=== PATIENT | female | born 1960 | race Caucasian/White ===

== ENCOUNTER 2021-06-01 13:18 | Emergency (ER) | payer MEDICAID ==
[~2021-06-01] VITALS: Ht 170.2 cm; Wt 130.0 kg
[~2021-06-01 13:18] MED LIST: ARIP5TAB14 PO; FLUO20CA39 PO; GABA-532 PO; SIMV-42 PO
[2021-06-01 14:01] VITALS: BP 98/69
[2021-06-01 15:25] LABS: BASOPHILS # (AUTO) 0.1 X10'3 (0-0.2); BASOPHILS % (AUTO) 0.8 % (0-1); EOSINOPHILS % (AUTO) 0.1 % (0-6); HEMATOCRIT 50.5 % (35.0-45.0); HEMOGLOBIN 17.2 g/dl (12.0-16.0); MEAN CORPUSCULAR HEMOGLOBIN 31.8 PG (27.0-31.0); MEAN CORPUSCULAR HGB CONC 34.1 g/dL (33.0-36.5); MEAN CORPUSCULAR VOLUME 93.3 FL (78-98); MEAN PLATELET VOLUME 9.5 FL (7.4-10.4); MONOCYTES # (AUTO) 0.8 X10'3 (0-0.9); MONOCYTES % (AUTO) 7.8 % (2-12); NEUTROPHILS # (AUTO) 7.2 X10'3 (1.8-7.7); NEUTROPHILS % (AUTO) 71.3 % (42-75); PLATELET COUNT 168 X10'3 (140-440); RED BLOOD COUNT 5.41 X10'6 (4.20-5.60); RED CELL DISTRIBUTION WIDTH 14.2 % (11.5-14.5)
[2021-06-01 15:36] LABS: ALANINE AMINOTRANSFERASE 36 U/L (12-78); ALBUMIN 3.6 G/DL (3.4-5.0); ALBUMIN/GLOBULIN RATIO 0.9 (1.1-1.5); ALKALINE PHOSPHATASE 84 IU/L (46-116); ANION GAP 11 (8-16); ASPARTATE AMINO TRANSFERASE 23 U/L (10-37); BILIRUBIN,TOTAL 0.8 MG/DL (0.1-1.0); BLOOD UREA NITROGEN 13 MG/DL (7-18); BUN/CREATININE RATIO 12.1 (6.6-38.0); CALCIUM 8.5 MG/DL (8.5-10.1); CHLORIDE 106 MMOL/L (99-107); CREATININE 1.07 MG/DL (0.40-0.90); GLUCOSE 156 MG/DL (70-104); POTASSIUM 3.9 MMOL/L (3.5-5.1); SODIUM 146 MMOL/L (135-145); TOTAL CARBON DIOXIDE 28.9 MMOL/L (24-32); TOTAL PROTEIN 7.7 G/DL (6.4-8.2); eGFR 52 ML/MIN
[2021-06-01 16:01] LABS: CLARITY,URINE TURBID (Clear); GLUCOSE, URINE 100 mg/dl (Neg); KETONES,URINE TRACE mg/dl (Neg); LEUKOCYTE ESTERASE ,URINE NEGATIVE (Neg); OCCULT BLOOD,URINE TRACE-INTACT (Neg); PROTEIN,URINE >=300 mg/dl (Neg)
[2021-06-01 16:13] LABS: UA COLLECTION TYPE CLN CATCH MIDSTREAM
[2021-06-01 16:17] LABS: COLOR,URINE DARK YELLOW (Yellow); NITRITES, URINE NEGATIVE (Neg)
[2021-06-01 16:18] LABS: AMORPHOUS URATES 2+; BACTERIA,URINE 2+ /HPF (Neg); MUCUS STRANDS MANY /LPF (Neg); RBC,URINE 0-2 /HPF (0-2); SQUAMOUS EPITHELIAL CELL,UR MANY /LPF (FEW); WBC,URINE 0-4 /HPF (0-4)
[2021-06-01] MEDS ORDERED: CYCL-1 PO (16:29)
== END 2021-06-01 17:23 | disposition home or self-care (01) ==
LOC: ER 13:18
DX: M54.5 Low back pain (principal); G89.29 Other chronic pain; Z88.6 Allergy status to analgesic agent; Z88.8 Allergy status to other drugs, medicaments and biological substances; Z79.899 Other long term (current) drug therapy
CPT/HCPCS: 36415; 80053; 81001; 85025; 99283

== ENCOUNTER 2022-08-29 13:36 | Emergency (ER) | payer MEDICAID ==
[~2022-08-29] VITALS: Ht 170.2 cm; Wt 158.8 kg
[~2022-08-29 13:36] MED LIST changes: +CYCL-1 PO
[2022-08-29 13:54] VITALS: BP 163/86
[2022-08-29] MEDS ORDERED: acetaminophen 325mg tablet PO ONE (14:35)
[2022-08-29] MEDS ORDERED: ketorolac trometh inj. 60 MG/2 ML VIAL IM ONE (14:35)
[2022-08-29] MEDS ORDERED: HYDR-3965 PO (14:36)
== END 2022-08-29 16:06 | disposition home or self-care (01) ==
LOC: ER 13:37
DX: S40.021A Contusion of right upper arm, initial encounter (principal); M25.521 Pain in right elbow; G89.29 Other chronic pain; M54.50 Low back pain, unspecified; Z88.5 Allergy status to narcotic agent; Z88.8 Allergy status to other drugs, medicaments and biological substances; W19.XXXA Unspecified fall, initial encounter; Y93.89 Activity, other specified; Y92.89 Other specified places as the place of occurrence of the external cause; Y99.8 Other external cause status
CPT/HCPCS: 73030; 73080; 96372; 99284; J1885; A4565

== ENCOUNTER 2022-10-22 10:30 | Inpatient (IN) | payer MEDICAID ==
[~2022-10-22] VITALS: Ht 172.7 cm; Wt 150.0 kg
[2022-10-22] MEDS ORDERED: methylPREDNISolone sod succ 125mg/2ml vial IV ONE (11:10)
[2022-10-22] MEDS ORDERED: albuterol 2.5 MG/3 ML nebule CONTNEB PRN ×2 (11:10→16:00)
[2022-10-22 11:52] LABS: BASOPHILS % (AUTO) 0.3 % (0-1); EOSINOPHILS # (AUTO) 0.1 X10'3 (0-0.9); EOSINOPHILS % (AUTO) 0.6 % (0-6); HEMATOCRIT 35.5 % (35.0-45.0); HEMOGLOBIN 11.2 g/dl (12.0-16.0); LYMPHOCYTES # (AUTO) 1.4 X10'3 (1.1-4.8); LYMPHOCYTES % (AUTO) 12.1 % (21-51); MEAN CORPUSCULAR HEMOGLOBIN 27.1 PG (27.0-31.0); MEAN CORPUSCULAR HGB CONC 31.6 g/dL (33.0-36.5); MEAN CORPUSCULAR VOLUME 85.8 FL (78-98); MEAN PLATELET VOLUME 7.6 FL (7.4-10.4); MONOCYTES % (AUTO) 8.7 % (2-12); NEUTROPHILS # (AUTO) 9.1 X10'3 (1.8-7.7); NEUTROPHILS % (AUTO) 78.3 % (42-75); PLATELET COUNT 257 X10'3 (140-440); RED BLOOD COUNT 4.13 X10'6 (4.20-5.60); RED CELL DISTRIBUTION WIDTH 16.5 % (11.5-14.5); WHITE BLOOD COUNT 11.7 X10'3 (4.5-11.0)
[2022-10-22 11:54] LABS: APTT 25 SECONDS (22-32)
[2022-10-22 11:56] LABS: ABG BASE EXCESS 6.9 mmol/L (-2.0-2.0); ABG OXYGEN SATURATION 85.9 % (94-97); ABG PCO2 (T) 68.4 mmHg (32.0-45.0); ABG PO2 (T) 54.3 mmHg (75.0-100.0); ALLEN'S TEST POSITIVE; FCOHb 3.8 % (0.0-3.9); FMetHb 0.3 % (0.0-1.5); FO2Hb 82.4 % (94-97); RESPIRATORY RATE 10 b/min; TIDAL VOLUME 523 mL; TOTAL HEMOGLOBIN 12.2 G/dl (12.0-16.0)
[2022-10-22 12:02] LABS: ALANINE AMINOTRANSFERASE 36 U/L (12-78); ALBUMIN 3.6 G/DL (3.4-5.0); ALBUMIN/GLOBULIN RATIO 0.9 (1.1-1.5); ALKALINE PHOSPHATASE 100 IU/L (46-116); ANION GAP 5 (8-16); ASPARTATE AMINO TRANSFERASE 16 U/L (10-37); BILIRUBIN,TOTAL 0.8 MG/DL (0.1-1.0); BLOOD UREA NITROGEN 13 MG/DL (7-18); BUN/CREATININE RATIO 14.4 (6.6-38.0); CALCIUM 8.6 MG/DL (8.5-10.1); CHLORIDE 99 MMOL/L (99-107); GLUCOSE 190 MG/DL (70-104); POTASSIUM 4.3 MMOL/L (3.5-5.1); SODIUM 139 MMOL/L (135-145); TOTAL PROTEIN 7.4 G/DL (6.4-8.2); eGFR 63 ML/MIN
[2022-10-22 14:48] LABS: ABG BASE EXCESS 6.8 mmol/L (-2.0-2.0); ABG HCO3 34.2 mmol/L (22.0-26.0); ABG OXYGEN SATURATION 88.9 % (94-97); ABG PCO2 (T) 63.1 mmHg (32.0-45.0); ALLEN'S TEST POSITIVE; FCOHb 3.2 % (0.0-3.9); FMetHb 0.3 % (0.0-1.5); FO2Hb 85.8 % (94-97); RESPIRATORY RATE 10 b/min; TOTAL HEMOGLOBIN 12.4 G/dl (12.0-16.0)
[2022-10-22 16:29] LABS: D-DIMER 0.82 MG/L FEU (0-0.50)
[2022-10-22] MEDS ORDERED: iohexol 350MG/ML 100ml bottle IV ONE ×2 (17:21→17:46)
[2022-10-22] MEDS ORDERED: CefTRIAXone/D5W-Rocephin 1gm 50 ML IV ONE (17:40)
[2022-10-22] MEDS ORDERED: furosemide 10 MG/1 ML 10ml inj IV ONE (19:25)
[2022-10-22] MEDS ORDERED: magnesium Cl slow-release 64mg tablet PO PRN (20:05)
[2022-10-22] MEDS ORDERED: potassium Cl 20 mEq SR tablet PO PRN ×2 (20:05)
[2022-10-22] MEDS ORDERED: magnesium 4gm in 100ml NS 100 ML IV PRN (20:05)
[2022-10-22] MEDS ORDERED: acetaminophen 325mg tablet PO PRN (20:05)
[2022-10-22] MEDS ORDERED: potassium Cl 40MEQ/1/2NS 520ml 520 ML IV PRN (20:05)
[2022-10-22] MEDS ORDERED: magnesium hydroxide 30ml (MOM) UD suspension PO PRN (20:05)
[2022-10-22] MEDS ORDERED: ondansetron/PF 4mg/2ml inj IV PRN (20:05)
[2022-10-22] MEDS ORDERED: PERFLUTREN PROTEIN-A MICROSPHR (Optison) 0.22 MG/ML 3ML VIAL IV ONE (20:05)
[2022-10-22] MEDS ORDERED: glucagon, human recombinant 1mg kit SUBCUT PRN (20:20)
[2022-10-22] MEDS ORDERED: DEXTROSE 15 GM of carb/4 tabs (each vial/BOTTLE has 4 tablets) PO PRN ×2 (20:20)
[2022-10-22] MEDS ORDERED: dextrose 50%-water 50ml dispensing syringe IV PRN ×2 (20:20)
[2022-10-22] MEDS ORDERED: MESSAGE TO PHARMACY PO ONE (20:20)
--- NOTE | 2022-10-22 20:22 | NUR ---
Medication not adminstered in ER or at time listed
[2022-10-22] MEDS ORDERED: diltiazem 60mg tablet PO SCH (21:00)
[2022-10-22] MEDS: diltiazem 30mg tablet PO SCH (22:42)
[2022-10-23] MEDS ORDERED: VIBE75TA PO (04:44)
[2022-10-23] MEDS ORDERED: METF-1203 PO (04:44)
[2022-10-23] MEDS ORDERED: ATOR40TA72 PO (04:44)
[2022-10-23] MEDS ORDERED: ARIP10TA57 PO (04:44)
[2022-10-23] MEDS ORDERED: OXYB15TA19 PO (04:46)
[2022-10-23] MEDS ORDERED: DILT180C87 PO (04:46)
--- NOTE | 2022-10-23 04:47 | NUR ---
Med rec completed using current medications on external med rec.
[2022-10-23 04:57] LABS: BASOPHILS % (AUTO) 0.2 % (0-1); EOSINOPHILS % (AUTO) 0.1 % (0-6); HEMATOCRIT 32.4 % (35.0-45.0); HEMOGLOBIN 10.1 g/dl (12.0-16.0); LYMPHOCYTES # (AUTO) 1.1 X10'3 (1.1-4.8); LYMPHOCYTES % (AUTO) 9.1 % (21-51); MEAN CORPUSCULAR HEMOGLOBIN 26.6 PG (27.0-31.0); MEAN CORPUSCULAR VOLUME 85.6 FL (78-98); MEAN PLATELET VOLUME 7.8 FL (7.4-10.4); MONOCYTES # (AUTO) 0.9 X10'3 (0-0.9); MONOCYTES % (AUTO) 7.6 % (2-12); PLATELET COUNT 230 X10'3 (140-440); RED BLOOD COUNT 3.79 X10'6 (4.20-5.60); RED CELL DISTRIBUTION WIDTH 16.6 % (11.5-14.5)
[2022-10-23 05:20] LABS: ALANINE AMINOTRANSFERASE 29 U/L (12-78); ALBUMIN 2.9 G/DL (3.4-5.0); ALBUMIN/GLOBULIN RATIO 0.9 (1.1-1.5); ALKALINE PHOSPHATASE 85 IU/L (46-116); ANION GAP 3 (8-16); ASPARTATE AMINO TRANSFERASE 14 U/L (10-37); BILIRUBIN,TOTAL 0.6 MG/DL (0.1-1.0); BLOOD UREA NITROGEN 11 MG/DL (7-18); BUN/CREATININE RATIO 13.8 (6.6-38.0); CALCIUM 8.3 MG/DL (8.5-10.1); CHLORIDE 101 MMOL/L (99-107); GLUCOSE 159 MG/DL (70-104); MAGNESIUM 2.2 MG/DL (1.5-2.4); POTASSIUM 4.6 MMOL/L (3.5-5.1); SODIUM 142 MMOL/L (135-145); TOTAL CARBON DIOXIDE 38.1 MMOL/L (24-32); TOTAL PROTEIN 6.3 G/DL (6.4-8.2); eGFR 72 ML/MIN
[2022-10-23] MEDS: K and/or MAG REPLACEMENT MC SCH ×2 (08:00→19:51)
[2022-10-23] MEDS: docusate sod 100mg capsule PO SCH ×2 (08:42→19:52)
[2022-10-23] MEDS: diltiazem 30mg tablet PO SCH ×3 (08:42→19:53)
[2022-10-23] MEDS: ARIPIPRAZOLE 10 MG TABLET PO SCH (08:42)
[2022-10-23] MEDS: apixaban 5mg tablet PO SCH ×2 (08:43→19:52)
[2022-10-23] MEDS: levoFLOXACIN-Levaquin 500mg/D5 100 ML IV SCH (08:45)
[2022-10-23] MEDS: ipratropium/albuterol 3ml nebule NEB SCH ×4 (11:38→23:39)
[2022-10-23] MEDS: methylPREDNISolone sod succ 125mg/2ml vial IV SCH ×2 (14:25→19:51)
[2022-10-23 14:29] VITALS: BP 108/68
[2022-10-23] MEDS ORDERED: APIX5TAB3 PO (15:46)
[2022-10-23 18:00] VITALS: BP 116/59
[2022-10-23] MEDS: oxybutynin 5mg tablet PO SCH (19:53)
[2022-10-23] MEDS ORDERED: insulin glargine (Lantus) pen - multi-dose SQ ONE (20:20)
[2022-10-23 22:00] VITALS: BP 94/56
[2022-10-24] MEDS: methylPREDNISolone sod succ 125mg/2ml vial IV SCH ×4 (01:45→18:58)
[2022-10-24] MEDS: ipratropium/albuterol 3ml nebule NEB SCH ×6 (03:19→23:02)
[2022-10-24 06:00] VITALS: BP 101/62
[2022-10-24] MEDS: levoFLOXACIN-Levaquin 500mg/D5 100 ML IV SCH (07:46)
[2022-10-24] MEDS: FLUoxetine 20mg capsule PO SCH (07:47)
[2022-10-24] MEDS: atorvastatin 20mg tablet PO SCH (07:47)
[2022-10-24] MEDS: oxybutynin 5mg tablet PO SCH ×3 (07:47→21:19)
[2022-10-24] MEDS: docusate sod 100mg capsule PO SCH ×2 (07:47→18:58)
[2022-10-24] MEDS: ARIPIPRAZOLE 10 MG TABLET PO SCH (07:48)
[2022-10-24] MEDS: diltiazem 30mg tablet PO SCH ×3 (07:48→18:58)
[2022-10-24] MEDS: apixaban 5mg tablet PO SCH ×2 (07:48→20:00)
[2022-10-24] MEDS: VIBEGRON 75 MG PO SCH (07:49)
[2022-10-24] MEDS ORDERED: ARIPIPRAZOLE 10 MG TABLET PO SCH (08:00)
[2022-10-24] MEDS: K and/or MAG REPLACEMENT MC SCH ×2 (08:00→20:00)
[2022-10-24 08:26] LABS: BASOPHILS % (AUTO) 0 % (0-1); EOSINOPHILS % (AUTO) 0 % (0-6); HEMATOCRIT 32.4 % (35.0-45.0); HEMOGLOBIN 10.2 g/dl (12.0-16.0); LYMPHOCYTES # (AUTO) 0.6 X10'3 (1.1-4.8); LYMPHOCYTES % (AUTO) 6.1 % (21-51); MEAN CORPUSCULAR HGB CONC 31.6 g/dL (33.0-36.5); MEAN CORPUSCULAR VOLUME 85.7 FL (78-98); MEAN PLATELET VOLUME 7.9 FL (7.4-10.4); MONOCYTES # (AUTO) 0.2 X10'3 (0-0.9); MONOCYTES % (AUTO) 1.6 % (2-12); NEUTROPHILS # (AUTO) 9.3 X10'3 (1.8-7.7); NEUTROPHILS % (AUTO) 92.3 % (42-75); PLATELET COUNT 226 X10'3 (140-440); RED BLOOD COUNT 3.78 X10'6 (4.20-5.60); RED CELL DISTRIBUTION WIDTH 16.3 % (11.5-14.5)
[2022-10-24 08:41] LABS: ALANINE AMINOTRANSFERASE 28 U/L (12-78); ALBUMIN/GLOBULIN RATIO 0.9 (1.1-1.5); ALKALINE PHOSPHATASE 75 IU/L (46-116); ANION GAP 2 (8-16); ASPARTATE AMINO TRANSFERASE 12 U/L (10-37); BILIRUBIN,TOTAL 0.5 MG/DL (0.1-1.0); BLOOD UREA NITROGEN 19 MG/DL (7-18); BUN/CREATININE RATIO 22.1 (6.6-38.0); CALCIUM 8.3 MG/DL (8.5-10.1); CHLORIDE 101 MMOL/L (99-107); CREATININE 0.86 MG/DL (0.40-0.90); GLUCOSE 239 MG/DL (70-104); MAGNESIUM 2.5 MG/DL (1.5-2.4); POTASSIUM 4.9 MMOL/L (3.5-5.1); SODIUM 140 MMOL/L (135-145); TOTAL CARBON DIOXIDE 36.6 MMOL/L (24-32); TOTAL PROTEIN 6.3 G/DL (6.4-8.2); eGFR 66 ML/MIN
[2022-10-24] MEDS: insulin Lispro (HumaLOG) vial - multi-dose SQ SCH ×3 (09:07→19:13)
[2022-10-24] MEDS: furosemide 40mg/4ml inj IV SCH ×2 (10:17→18:58)
[2022-10-24 10:30] VITALS: BP 108/66
[2022-10-24 15:00] VITALS: BP 103/58
[2022-10-24 18:00] VITALS: BP 103/59
[2022-10-24] MEDS: insulin glargine (Lantus) pen - multi-dose SQ SCH (21:34)
[2022-10-24 22:00] VITALS: BP 99/61
[2022-10-25] MEDS: methylPREDNISolone sod succ 125mg/2ml vial IV SCH ×4 (01:41→19:34)
[2022-10-25 02:00] VITALS: BP 119/69
[2022-10-25] MEDS: ipratropium/albuterol 3ml nebule NEB SCH ×5 (03:37→20:18)
[2022-10-25 06:00] VITALS: BP 120/80
[2022-10-25 06:34] LABS: BASOPHILS % (AUTO) 0.1 % (0-1); EOSINOPHILS % (AUTO) 0 % (0-6); HEMATOCRIT 32.5 % (35.0-45.0); HEMOGLOBIN 10.1 g/dl (12.0-16.0); LYMPHOCYTES # (AUTO) 0.7 X10'3 (1.1-4.8); LYMPHOCYTES % (AUTO) 5.7 % (21-51); MEAN CORPUSCULAR HEMOGLOBIN 26.1 PG (27.0-31.0); MEAN CORPUSCULAR VOLUME 84.5 FL (78-98); MEAN PLATELET VOLUME 7.6 FL (7.4-10.4); MONOCYTES # (AUTO) 0.3 X10'3 (0-0.9); MONOCYTES % (AUTO) 2.7 % (2-12); NEUTROPHILS # (AUTO) 10.7 X10'3 (1.8-7.7); NEUTROPHILS % (AUTO) 91.5 % (42-75); PLATELET COUNT 222 X10'3 (140-440); RED BLOOD COUNT 3.85 X10'6 (4.20-5.60); RED CELL DISTRIBUTION WIDTH 16.5 % (11.5-14.5); WHITE BLOOD COUNT 11.7 X10'3 (4.5-11.0)
[2022-10-25 06:52] LABS: ALANINE AMINOTRANSFERASE 28 U/L (12-78); ALBUMIN/GLOBULIN RATIO 0.9 (1.1-1.5); ALKALINE PHOSPHATASE 69 IU/L (46-116); ANION GAP 0 (8-16); ASPARTATE AMINO TRANSFERASE 14 U/L (10-37); BILIRUBIN,TOTAL 0.5 MG/DL (0.1-1.0); BLOOD UREA NITROGEN 28 MG/DL (7-18); BUN/CREATININE RATIO 31.5 (6.6-38.0); CALCIUM 8.7 MG/DL (8.5-10.1); CHLORIDE 100 MMOL/L (99-107); CREATININE 0.89 MG/DL (0.40-0.90); GLUCOSE 227 MG/DL (70-104); MAGNESIUM 2.4 MG/DL (1.5-2.4); POTASSIUM 4.4 MMOL/L (3.5-5.1); SODIUM 139 MMOL/L (135-145); TOTAL CARBON DIOXIDE 39.4 MMOL/L (24-32); TOTAL PROTEIN 6.3 G/DL (6.4-8.2); eGFR 64 ML/MIN
--- NOTE | 2022-10-25 06:53 | NUR ---
Patient in room PCU 3016U. I have received report from Briana HEART and had the opportunity to ask questions and assume patient care. Pt is laying low fowers in bed. Pt on 5L NC. No s/s of distress, no s/s of pain at this time. BLL, call light within reach, frequently used items in reach, frequent rounding, residential care officer socks on. Will continue to monitor.
[2022-10-25] MEDS: K and/or MAG REPLACEMENT MC SCH ×2 (08:00→20:00)
[2022-10-25] MEDS: VIBEGRON 75 MG PO SCH (08:00)
[2022-10-25] MEDS: levoFLOXACIN-Levaquin 500mg/D5 100 ML IV SCH (08:00)
[2022-10-25] MEDS: atorvastatin 20mg tablet PO SCH (09:32)
[2022-10-25] MEDS: ARIPIPRAZOLE 10 MG TABLET PO SCH (09:32)
[2022-10-25] MEDS: furosemide 40mg/4ml inj IV SCH ×2 (09:32→19:34)
[2022-10-25] MEDS: docusate sod 100mg capsule PO SCH ×2 (09:33→19:21)
[2022-10-25] MEDS: FLUoxetine 20mg capsule PO SCH (09:33)
[2022-10-25] MEDS: oxybutynin 5mg tablet PO SCH ×3 (09:33→21:00)
[2022-10-25] MEDS: apixaban 5mg tablet PO SCH ×2 (09:33→19:22)
[2022-10-25] MEDS: diltiazem 30mg tablet PO SCH ×3 (09:33→21:00)
[2022-10-25] MEDS: insulin Lispro (HumaLOG) vial - multi-dose SQ SCH ×4 (09:50→21:09)
[2022-10-25 11:00] VITALS: BP 97/58
--- NOTE | 2022-10-25 11:27 | NUR ---
Brea Chowdary [id number]: x3 PIV tries. Need help placing new PIV- if you have time. Page to PICC nurse
--- NOTE | 2022-10-25 14:27 | NUR ---
Brea Chowdary [id number]: Need help placing new PIV. Multiple attempts no success. Thank you -Neisha Escalante EXT [phone] 2nd page to PICC Nurse
--- NOTE | 2022-10-25 15:46 | NUR ---
Pt seems to be doing good off the bipap, up in recliner. Spoke to her about possibly needing to wear the bipap for tonight, then she may not need tomorrow. Addendum: 10/25/22 at 1546 by Kristie Mathis RT Amended: Links added.
[2022-10-25 18:00] VITALS: BP 93/55
--- NOTE | 2022-10-25 19:10 | NUR ---
Problems reprioritized. Patient report given, questions answered & plan of care reviewed with Ivy HEART.
[2022-10-25] MEDS: insulin glargine (Lantus) pen - multi-dose SQ SCH (21:08)
[2022-10-25 22:00] VITALS: BP 118/73
[2022-10-26] VITALS (7 sets, daily range): BP systolic 97–136; BP diastolic 59–78
[2022-10-26] MEDS: ipratropium/albuterol 3ml nebule NEB SCH ×7 (00:06→23:46)
[2022-10-26] MEDS: methylPREDNISolone sod succ 125mg/2ml vial IV SCH ×4 (02:02→22:01)
--- NOTE | 2022-10-26 06:30 | NUR ---
Patient in room PCU 3018. I have received report from UNA BAJWA, and had the opportunity to ask questions and assume patient care.
--- NOTE | 2022-10-26 06:55 | NUR ---
Problems reprioritized. Patient report given, questions answered & plan of care reviewed with Zoë HEART.
[2022-10-26 07:04] LABS: ALANINE AMINOTRANSFERASE 31 U/L (12-78); ALBUMIN/GLOBULIN RATIO 0.9 (1.1-1.5); ALKALINE PHOSPHATASE 61 IU/L (46-116); ANION GAP 3 (8-16); ASPARTATE AMINO TRANSFERASE 12 U/L (10-37); BILIRUBIN,TOTAL 0.5 MG/DL (0.1-1.0); BLOOD UREA NITROGEN 28 MG/DL (7-18); BUN/CREATININE RATIO 36.8 (6.6-38.0); CALCIUM 8.7 MG/DL (8.5-10.1); CHLORIDE 98 MMOL/L (99-107); CREATININE 0.76 MG/DL (0.40-0.90); GLUCOSE 223 MG/DL (70-104); MAGNESIUM 2.4 MG/DL (1.5-2.4); POTASSIUM 4.5 MMOL/L (3.5-5.1); SODIUM 139 MMOL/L (135-145); TOTAL CARBON DIOXIDE 38.1 MMOL/L (24-32); TOTAL PROTEIN 6.2 G/DL (6.4-8.2); eGFR 77 ML/MIN
[2022-10-26 07:07] LABS: BASOPHILS % (AUTO) 0 % (0-1); EOSINOPHILS % (AUTO) 0 % (0-6); HEMATOCRIT 33.1 % (35.0-45.0); HEMOGLOBIN 10.5 g/dl (12.0-16.0); LYMPHOCYTES # (AUTO) 0.6 X10'3 (1.1-4.8); MEAN CORPUSCULAR HEMOGLOBIN 26.8 PG (27.0-31.0); MEAN CORPUSCULAR HGB CONC 31.6 g/dL (33.0-36.5); MEAN CORPUSCULAR VOLUME 84.7 FL (78-98); MEAN PLATELET VOLUME 7.8 FL (7.4-10.4); MONOCYTES # (AUTO) 0.2 X10'3 (0-0.9); MONOCYTES % (AUTO) 1.7 % (2-12); NEUTROPHILS # (AUTO) 9.3 X10'3 (1.8-7.7); NEUTROPHILS % (AUTO) 92.3 % (42-75); PLATELET COUNT 208 X10'3 (140-440); RED BLOOD COUNT 3.91 X10'6 (4.20-5.60); RED CELL DISTRIBUTION WIDTH 16.8 % (11.5-14.5); WHITE BLOOD COUNT 10.1 X10'3 (4.5-11.0)
[2022-10-26] MEDS: K and/or MAG REPLACEMENT MC SCH ×2 (08:00→20:00)
[2022-10-26] MEDS: insulin Lispro (HumaLOG) vial - multi-dose SQ SCH ×4 (09:16→22:21)
[2022-10-26] MEDS: levoFLOXACIN-Levaquin 500mg/D5 100 ML IV SCH (09:22)
[2022-10-26] MEDS: furosemide 40mg/4ml inj IV SCH ×2 (09:22→22:10)
[2022-10-26] MEDS: oxybutynin 5mg tablet PO SCH ×3 (09:25→22:25)
[2022-10-26] MEDS: atorvastatin 20mg tablet PO SCH (09:25)
[2022-10-26] MEDS: VIBEGRON 75 MG PO SCH (09:25)
[2022-10-26] MEDS: docusate sod 100mg capsule PO SCH ×2 (09:25→20:54)
[2022-10-26] MEDS: diltiazem 30mg tablet PO SCH ×3 (09:26→21:00)
[2022-10-26] MEDS: ARIPIPRAZOLE 10 MG TABLET PO SCH (09:26)
[2022-10-26] MEDS: FLUoxetine 20mg capsule PO SCH (09:26)
[2022-10-26] MEDS: apixaban 5mg tablet PO SCH ×2 (09:37→19:18)
[2022-10-26] MEDS: mag hydrox/Alum hydrox/simeth 30ml oral suspension PO PRN (10:44)
--- NOTE | 2022-10-26 14:54 | NUR ---
Initial: Pt admit for acute respiratory failure with CO2 retention, CHF exacerbation, COPD exacerbation, bilat PNA, and A.fib. Currently on a CHO controlled diet and eating well, documented with 75-100% PO intake. D/w dietary to send additional protein with meals for satiety. LBM 10/22, receiving routine bowel care. D/w dietary to send power pudding with next meal to further assist with bowel regularity. Will continue to follow and monitor need for additional nutrition intervention. Recommendations: 1) Continue CHO controlled diet 2) Double eggs WB, double meat BIDLD for satiety 3) Routine bowel care; monitor need for additional 4) Scaled weight this admit; subsequent weekly scaled weights Addendum: 10/26/22 at [address] Amended: Links added.
--- NOTE | 2022-10-26 18:12 | NUR ---
Problems reprioritized. Patient report given, questions answered & plan of care reviewed with GISSEL GUAJARDO.
--- NOTE | 2022-10-26 18:15 | NUR ---
Patient in room PCU 3018. I have received report from Zoë HEART and had the opportunity to ask questions and assume patient care.
[2022-10-26] MEDS: insulin glargine (Lantus) pen - multi-dose SQ SCH (22:21)
[2022-10-26] MEDS: acetaminophen 325mg tablet PO PRN (22:25)
[2022-10-27 02:00] VITALS: BP 92/64
[2022-10-27] MEDS: ipratropium/albuterol 3ml nebule NEB SCH ×6 (03:01→22:51)
[2022-10-27 06:00] VITALS: BP 110/72
--- NOTE | 2022-10-27 06:19 | NUR ---
Problems reprioritized. Patient report given, questions answered & plan of care reviewed with Zoë HEART.
--- NOTE | 2022-10-27 06:35 | NUR ---
Patient in room PCU 3018. I have received report from GISSEL GUAJARDO, and had the opportunity to ask questions and assume patient care. PT AWAKE, RESTING COMFORTABLY, NO NEEDS AT THIS TIME. WILL CONTINUE TO MONITOR.
--- NOTE | 2022-10-27 06:57 | NUR ---
Agree with Kat CHAUHAN except where I documented my findings.
[2022-10-27 07:05] LABS: BASOPHILS % (AUTO) 0 % (0-1); EOSINOPHILS % (AUTO) 0 % (0-6); HEMATOCRIT 35.9 % (35.0-45.0); HEMOGLOBIN 11.3 g/dl (12.0-16.0); LYMPHOCYTES # (AUTO) 0.8 X10'3 (1.1-4.8); LYMPHOCYTES % (AUTO) 6.6 % (21-51); MEAN CORPUSCULAR HEMOGLOBIN 26.4 PG (27.0-31.0); MEAN CORPUSCULAR HGB CONC 31.5 g/dL (33.0-36.5); MEAN CORPUSCULAR VOLUME 83.7 FL (78-98); MEAN PLATELET VOLUME 7.6 FL (7.4-10.4); MONOCYTES # (AUTO) 0.5 X10'3 (0-0.9); MONOCYTES % (AUTO) 3.9 % (2-12); NEUTROPHILS # (AUTO) 10.4 X10'3 (1.8-7.7); NEUTROPHILS % (AUTO) 89.5 % (42-75); PLATELET COUNT 222 X10'3 (140-440); RED BLOOD COUNT 4.28 X10'6 (4.20-5.60); RED CELL DISTRIBUTION WIDTH 16.5 % (11.5-14.5); WHITE BLOOD COUNT 11.6 X10'3 (4.5-11.0)
[2022-10-27 07:13] LABS: ALANINE AMINOTRANSFERASE 32 U/L (12-78); ALBUMIN 3.1 G/DL (3.4-5.0); ALBUMIN/GLOBULIN RATIO 0.9 (1.1-1.5); ALKALINE PHOSPHATASE 63 IU/L (46-116); ANION GAP 2 (8-16); ASPARTATE AMINO TRANSFERASE 19 U/L (10-37); BILIRUBIN,TOTAL 0.6 MG/DL (0.1-1.0); BLOOD UREA NITROGEN 31 MG/DL (7-18); BUN/CREATININE RATIO 32.6 (6.6-38.0); CALCIUM 8.6 MG/DL (8.5-10.1); CHLORIDE 97 MMOL/L (99-107); CREATININE 0.95 MG/DL (0.40-0.90); GLUCOSE 195 MG/DL (70-104); POTASSIUM 4.1 MMOL/L (3.5-5.1); SODIUM 139 MMOL/L (135-145); TOTAL CARBON DIOXIDE 39.7 MMOL/L (24-32); TOTAL PROTEIN 6.4 G/DL (6.4-8.2); eGFR 59 ML/MIN
[2022-10-27] MEDS: K and/or MAG REPLACEMENT MC SCH ×2 (08:00→20:00)
[2022-10-27] MEDS: insulin Lispro (HumaLOG) vial - multi-dose SQ SCH ×4 (09:03→22:05)
[2022-10-27] MEDS: methylPREDNISolone sod succ 125mg/2ml vial IV SCH (09:07)
[2022-10-27] MEDS: furosemide 40mg/4ml inj IV SCH ×2 (09:08→22:21)
[2022-10-27] MEDS: oxybutynin 5mg tablet PO SCH ×3 (09:12→22:14)
[2022-10-27] MEDS: VIBEGRON 75 MG PO SCH (09:12)
[2022-10-27] MEDS: FLUoxetine 20mg capsule PO SCH (09:12)
[2022-10-27] MEDS: docusate sod 100mg capsule PO SCH ×2 (09:12→22:14)
[2022-10-27] MEDS: diltiazem 30mg tablet PO SCH ×3 (09:13→21:00)
[2022-10-27] MEDS: ARIPIPRAZOLE 10 MG TABLET PO SCH (09:13)
[2022-10-27] MEDS: atorvastatin 20mg tablet PO SCH (09:13)
[2022-10-27] MEDS: apixaban 5mg tablet PO SCH ×2 (09:13→22:14)
--- NOTE | 2022-10-27 10:46 | NUR ---
Paged PICC nurse [id number]. Belt. Need PIV assistance for abx and lasix. 2 failed attempts. Thx
[2022-10-27 12:17] VITALS: BP 125/54
[2022-10-27] MEDS: levoFLOXACIN-Levaquin 500mg/D5 100 ML IV SCH (12:21)
[2022-10-27 16:32] VITALS: BP 131/70
[2022-10-27 18:00] VITALS: BP 121/65
--- NOTE | 2022-10-27 18:16 | NUR ---
Problems reprioritized. Patient report given, questions answered & plan of care reviewed with GISSEL GUAJARDO.
--- NOTE | 2022-10-27 18:24 | NUR ---
Patient in room PCU 3018. I have received report from Martha HEART and had the opportunity to ask questions and assume patient care.
[2022-10-27] MEDS: insulin glargine (Lantus) pen - multi-dose SQ SCH (22:03)
[2022-10-27] MEDS: methylPREDNISolone sod succ/PF 40mg inj. IV SCH (22:21)
[2022-10-28] MEDS: ipratropium/albuterol 3ml nebule NEB SCH ×6 (02:07→23:21)
[2022-10-28 06:00] VITALS: BP 120/87
--- NOTE | 2022-10-28 06:25 | NUR ---
Problems reprioritized. Patient report given, questions answered & plan of care reviewed with Zoë HEART.
--- NOTE | 2022-10-28 06:39 | NUR ---
Patient in room PCU 3018. I have received report from GISSEL GUAJARDO, and had the opportunity to ask questions and assume patient care.
--- NOTE | 2022-10-28 07:02 | NUR ---
Agree with Suma SALES AGENT PROTECTIVE SERVICE assessment except where I documented my findings.
[2022-10-28] MEDS: K and/or MAG REPLACEMENT MC SCH ×2 (08:00→20:00)
[2022-10-28] MEDS: insulin Lispro (HumaLOG) vial - multi-dose SQ SCH ×3 (08:55→19:00)
[2022-10-28] MEDS: methylPREDNISolone sod succ/PF 40mg inj. IV SCH ×2 (08:55→20:10)
[2022-10-28] MEDS: furosemide 40mg/4ml inj IV SCH ×2 (08:56→20:00)
[2022-10-28] MEDS: docusate sod 100mg capsule PO SCH ×2 (09:03→20:54)
[2022-10-28] MEDS: ARIPIPRAZOLE 10 MG TABLET PO SCH (09:03)
[2022-10-28] MEDS: oxybutynin 5mg tablet PO SCH ×3 (09:03→20:54)
[2022-10-28] MEDS: atorvastatin 20mg tablet PO SCH (09:03)
[2022-10-28] MEDS: VIBEGRON 75 MG PO SCH (09:04)
[2022-10-28] MEDS: diltiazem 30mg tablet PO SCH (09:04)
[2022-10-28] MEDS: FLUoxetine 20mg capsule PO SCH (09:04)
[2022-10-28] MEDS: apixaban 5mg tablet PO SCH ×2 (09:04→20:54)
[2022-10-28] MEDS ORDERED: diltiazem SR 60mg capsule (twice daily) PO ONE (09:55)
[2022-10-28 11:05] LABS: BASOPHILS % (AUTO) 0.2 % (0-1); EOSINOPHILS % (AUTO) 0 % (0-6); HEMATOCRIT 37.8 % (35.0-45.0); HEMOGLOBIN 11.8 g/dl (12.0-16.0); LYMPHOCYTES # (AUTO) 0.6 X10'3 (1.1-4.8); LYMPHOCYTES % (AUTO) 4.7 % (21-51); MEAN CORPUSCULAR HEMOGLOBIN 26.1 PG (27.0-31.0); MEAN CORPUSCULAR HGB CONC 31.3 g/dL (33.0-36.5); MEAN CORPUSCULAR VOLUME 83.3 FL (78-98); MEAN PLATELET VOLUME 7.9 FL (7.4-10.4); MONOCYTES # (AUTO) 0.6 X10'3 (0-0.9); MONOCYTES % (AUTO) 4.6 % (2-12); NEUTROPHILS # (AUTO) 12.2 X10'3 (1.8-7.7); NEUTROPHILS % (AUTO) 90.5 % (42-75); PLATELET COUNT 239 X10'3 (140-440); RED BLOOD COUNT 4.53 X10'6 (4.20-5.60); RED CELL DISTRIBUTION WIDTH 16.4 % (11.5-14.5); WHITE BLOOD COUNT 13.5 X10'3 (4.5-11.0)
[2022-10-28 11:14] LABS: ALBUMIN 3.2 G/DL (3.4-5.0); ANION GAP 3 (8-16); BLOOD UREA NITROGEN 34 MG/DL (7-18); BUN/CREATININE RATIO 35.1 (6.6-38.0); CALCIUM 8.9 MG/DL (8.5-10.1); CHLORIDE 96 MMOL/L (99-107); CREATININE 0.97 MG/DL (0.40-0.90); GLUCOSE 194 MG/DL (70-104); POTASSIUM 3.8 MMOL/L (3.5-5.1); SODIUM 140 MMOL/L (135-145); eGFR 58 ML/MIN
[2022-10-28 11:15] LABS: TOTAL CARBON DIOXIDE 41.1 MMOL/L (24-32)
--- NOTE | 2022-10-28 11:18 | NUR ---
PAGE SENT PAGER ID: [phone] MESSAGE: [id number] Maik, CONCETTA LEMUS, CRITICAL LAB CO2 41.1. THANK YOU, ODETTE [id number]
[2022-10-28] MEDS: levoFLOXACIN 500mg tablet PO SCH (13:28)
[2022-10-28 14:34] VITALS: BP 91/65
[2022-10-28 18:00] VITALS: BP 118/62
--- NOTE | 2022-10-28 18:03 | NUR ---
Problems reprioritized. Patient report given, questions answered & plan of care reviewed with GISSEL GUAJARDO.
--- NOTE | 2022-10-28 18:32 | NUR ---
Patient in room PCU 3018. I have received report from Zoë HEART and had the opportunity to ask questions and assume patient care.
[2022-10-28] MEDS: insulin glargine (Lantus) pen - multi-dose SQ SCH (21:11)
[2022-10-29] MEDS: ipratropium/albuterol 3ml nebule NEB SCH ×6 (04:11→23:24)
[2022-10-29 06:00] VITALS: BP 108/82
--- NOTE | 2022-10-29 06:21 | NUR ---
Problems reprioritized. Patient report given, questions answered & plan of care reviewed with Angeles CHAUHAN.
[2022-10-29 06:44] LABS: BASOPHILS % (AUTO) 0.3 % (0-1); EOSINOPHILS % (AUTO) 0 % (0-6); HEMATOCRIT 37.7 % (35.0-45.0); HEMOGLOBIN 11.9 g/dl (12.0-16.0); MEAN CORPUSCULAR HEMOGLOBIN 26.2 PG (27.0-31.0); MEAN CORPUSCULAR HGB CONC 31.6 g/dL (33.0-36.5); MEAN CORPUSCULAR VOLUME 83.1 FL (78-98); MONOCYTES # (AUTO) 0.6 X10'3 (0-0.9); MONOCYTES % (AUTO) 4.4 % (2-12); NEUTROPHILS # (AUTO) 11.1 X10'3 (1.8-7.7); NEUTROPHILS % (AUTO) 87.3 % (42-75); PLATELET COUNT 221 X10'3 (140-440); RED BLOOD COUNT 4.54 X10'6 (4.20-5.60); RED CELL DISTRIBUTION WIDTH 16.4 % (11.5-14.5); WHITE BLOOD COUNT 12.8 X10'3 (4.5-11.0)
[2022-10-29 07:09] LABS: ALBUMIN 3.1 G/DL (3.4-5.0); ANION GAP 3 (8-16); BLOOD UREA NITROGEN 31 MG/DL (7-18); BUN/CREATININE RATIO 39.2 (6.6-38.0); CALCIUM 8.6 MG/DL (8.5-10.1); CHLORIDE 99 MMOL/L (99-107); CREATININE 0.79 MG/DL (0.40-0.90); GLUCOSE 148 MG/DL (70-104); POTASSIUM 4.4 MMOL/L (3.5-5.1); SODIUM 140 MMOL/L (135-145); TOTAL CARBON DIOXIDE 37.7 MMOL/L (24-32); eGFR 73 ML/MIN
[2022-10-29] MEDS: furosemide 40mg/4ml inj IV SCH ×2 (07:55→20:03)
[2022-10-29] MEDS: methylPREDNISolone sod succ/PF 40mg inj. IV SCH ×2 (07:55→20:05)
[2022-10-29] MEDS: docusate sod 100mg capsule PO SCH ×2 (07:56→20:13)
[2022-10-29] MEDS: atorvastatin 20mg tablet PO SCH (07:56)
[2022-10-29] MEDS: ARIPIPRAZOLE 10 MG TABLET PO SCH (07:57)
[2022-10-29] MEDS: VIBEGRON 75 MG PO SCH (07:57)
[2022-10-29] MEDS: oxybutynin 5mg tablet PO SCH ×3 (07:57→20:17)
[2022-10-29] MEDS: FLUoxetine 20mg capsule PO SCH (07:57)
[2022-10-29] MEDS: diltiazem SR 60mg capsule (twice daily) PO SCH (07:57)
[2022-10-29] MEDS: apixaban 5mg tablet PO SCH ×2 (07:57→20:14)
[2022-10-29] MEDS: K and/or MAG REPLACEMENT MC SCH ×2 (08:00→20:00)
[2022-10-29] MEDS: insulin Lispro (HumaLOG) vial - multi-dose SQ SCH ×3 (09:19→19:52)
[2022-10-29] MEDS: levoFLOXACIN 500mg tablet PO SCH (12:07)
[2022-10-29 18:00] VITALS: BP 114/63
--- NOTE | 2022-10-29 18:00 | NUR ---
Patient in room PCU 3018. I have received report from GLENN CHAUHAN and had the opportunity to ask questions and assume patient care.
[2022-10-29] MEDS: acetaminophen 325mg tablet PO PRN (20:14)
[2022-10-29 22:00] VITALS: BP 114/68
[2022-10-29] MEDS: insulin glargine (Lantus) pen - multi-dose SQ SCH (22:54)
[2022-10-30 02:00] VITALS: BP 122/75
[2022-10-30] MEDS: acetaminophen 325mg tablet PO PRN (02:59)
[2022-10-30] MEDS: ipratropium/albuterol 3ml nebule NEB SCH ×6 (03:11→23:00)
[2022-10-30 06:00] VITALS: BP 115/76
[2022-10-30] MEDS: K and/or MAG REPLACEMENT MC SCH ×2 (08:00→20:00)
[2022-10-30] MEDS: methylPREDNISolone sod succ/PF 40mg inj. IV SCH ×2 (08:12→20:00)
[2022-10-30] MEDS: furosemide 40mg/4ml inj IV SCH ×2 (08:12→20:00)
[2022-10-30] MEDS: apixaban 5mg tablet PO SCH ×2 (09:26→20:37)
[2022-10-30] MEDS: docusate sod 100mg capsule PO SCH ×2 (09:26→20:00)
[2022-10-30] MEDS: ARIPIPRAZOLE 10 MG TABLET PO SCH (09:26)
[2022-10-30] MEDS: FLUoxetine 20mg capsule PO SCH (09:26)
[2022-10-30] MEDS: atorvastatin 20mg tablet PO SCH (09:26)
[2022-10-30] MEDS: oxybutynin 5mg tablet PO SCH ×3 (09:26→20:37)
[2022-10-30] MEDS: diltiazem SR 60mg capsule (twice daily) PO SCH (09:27)
[2022-10-30] MEDS: VIBEGRON 75 MG PO SCH (09:27)
[2022-10-30] MEDS: insulin Lispro (HumaLOG) vial - multi-dose SQ SCH ×2 (09:35→13:01)
[2022-10-30] MEDS: levoFLOXACIN 500mg tablet PO SCH (10:56)
[2022-10-30] MEDS: mag hydrox/Alum hydrox/simeth 30ml oral suspension PO PRN (10:56)
[2022-10-30 11:00] VITALS: BP 120/78
[2022-10-30] MEDS ORDERED: LEVO-65 PO (11:29)
[2022-10-30] MEDS ORDERED: IPRA3AMP9 NEB (11:29)
[2022-10-30] MEDS ORDERED: PRED10TA23 PO (11:30)
[2022-10-30] MEDS ORDERED: PANT40SU2 PO (11:30)
--- NOTE | 2022-10-30 11:34 | NUR ---
O2 Sat at rest on room air:_88__% If below 89%: Recovery O2 Sat at rest on _2__LPM:__94_%:___% via nasal cannula (mask/nasal cannula, etc..) No further documentation is necessary. If O2 Sat did not drop below 89% on room air,ambulate patient on room air. O2 Sat while ambulating on room air:___% Recovery O2 Sat while ambulating on ___LPM:___% No further documentation is necessary. If patient does not drop below 89% while ambulating, he/she does not qualify for home O2.
[2022-10-30 15:00] VITALS: BP 124/74
--- NOTE | 2022-10-30 16:50 | NUR ---
GISSEL II documentation: I have reviewed and agree with all interventions, assessments performed and documented by GISSEL Reynoso II.
[2022-10-30 18:00] VITALS: BP 104/74
--- NOTE | 2022-10-30 18:01 | NUR ---
1700 blood glucose pt refused.
[2022-10-30] MEDS: insulin glargine (Lantus) pen - multi-dose SQ SCH (20:45)
[2022-10-30 22:00] VITALS: BP 95/56
[2022-10-31 02:00] VITALS: BP 117/74
[2022-10-31] MEDS: ipratropium/albuterol 3ml nebule NEB SCH ×3 (03:00→10:48)
[2022-10-31] MEDS: furosemide 40mg/4ml inj IV SCH (08:00)
[2022-10-31] MEDS: methylPREDNISolone sod succ/PF 40mg inj. IV SCH (08:00)
[2022-10-31] MEDS: K and/or MAG REPLACEMENT MC SCH (08:00)
[2022-10-31] MEDS: docusate sod 100mg capsule PO SCH (08:41)
[2022-10-31] MEDS: ARIPIPRAZOLE 10 MG TABLET PO SCH (08:41)
[2022-10-31] MEDS: atorvastatin 20mg tablet PO SCH (08:41)
[2022-10-31] MEDS: FLUoxetine 20mg capsule PO SCH (08:41)
[2022-10-31] MEDS: apixaban 5mg tablet PO SCH (08:41)
[2022-10-31] MEDS: oxybutynin 5mg tablet PO SCH ×2 (08:41→13:26)
[2022-10-31] MEDS: diltiazem SR 60mg capsule (twice daily) PO SCH (08:41)
[2022-10-31] MEDS: VIBEGRON 75 MG PO SCH (08:43)
[2022-10-31] MEDS: insulin Lispro (HumaLOG) vial - multi-dose SQ SCH ×2 (08:48→13:31)
[2022-10-31] MEDS: levoFLOXACIN 500mg tablet PO SCH (11:43)
--- NOTE | 2022-10-31 14:36 | NUR ---
AGREE WITH GLENN CHAUHAN AM ASSESSMENT
== END 2022-10-31 14:00 | disposition home health service (06) | DRG 139 ==
LOC: ER 10:31 → ED HOLD 20:07 → PCU 3S 10-23 14:15
PROVIDERS: ADMIT Internal Medicine; ATTEND Family Medicine
PROC: B32T1ZZ Computerized Tomography (CT Scan) of Left Pulmonary Artery using Low Osmolar Contrast (ICD-10-PCS; 2022-10-22)
PROC: B3201ZZ Computerized Tomography (CT Scan) of Thoracic Aorta using Low Osmolar Contrast (ICD-10-PCS; 2022-10-22)
PROC: B32S1ZZ Computerized Tomography (CT Scan) of Right Pulmonary Artery using Low Osmolar Contrast (ICD-10-PCS; 2022-10-22)
PROC: 5A09357 Assistance with Respiratory Ventilation, Less than 24 Consecutive Hours, Continuous Positive Airway Pressure (ICD-10-PCS; principal; 2022-10-23)
PROC: 5A09357 Assistance with Respiratory Ventilation, Less than 24 Consecutive Hours, Continuous Positive Airway Pressure (ICD-10-PCS; 2022-10-24)
PROC: 5A09357 Assistance with Respiratory Ventilation, Less than 24 Consecutive Hours, Continuous Positive Airway Pressure (ICD-10-PCS; 2022-10-25)
PROC: 5A09357 Assistance with Respiratory Ventilation, Less than 24 Consecutive Hours, Continuous Positive Airway Pressure (ICD-10-PCS; 2022-10-26)
PROC: 5A09357 Assistance with Respiratory Ventilation, Less than 24 Consecutive Hours, Continuous Positive Airway Pressure (ICD-10-PCS; 2022-10-27)
PROC: 5A09357 Assistance with Respiratory Ventilation, Less than 24 Consecutive Hours, Continuous Positive Airway Pressure (ICD-10-PCS; 2022-10-28)
PROC: 5A09357 Assistance with Respiratory Ventilation, Less than 24 Consecutive Hours, Continuous Positive Airway Pressure (ICD-10-PCS; 2022-10-30)
DX: J18.9 Pneumonia, unspecified organism (principal); J96.21 Acute and chronic respiratory failure with hypoxia; I50.33 Acute on chronic diastolic (congestive) heart failure; E11.9 Type 2 diabetes mellitus without complications; I11.0 Hypertensive heart disease with heart failure; J44.0 Chronic obstructive pulmonary disease with (acute) lower respiratory infection; F32.A Depression, unspecified; F41.9 Anxiety disorder, unspecified; E87.29 Other acidosis; G89.29 Other chronic pain; K21.9 Gastro-esophageal reflux disease without esophagitis; M54.9 Dorsalgia, unspecified; I48.91 Unspecified atrial fibrillation; E66.01 Morbid (severe) obesity due to excess calories; E78.00 Pure hypercholesterolemia, unspecified; J44.1 Chronic obstructive pulmonary disease with (acute) exacerbation; J96.22 Acute and chronic respiratory failure with hypercapnia; Z20.822 Contact with and (suspected) exposure to COVID-19; Z79.01 Long term (current) use of anticoagulants; Z79.84 Long term (current) use of oral hypoglycemic drugs; Z87.891 Personal history of nicotine dependence; Z68.43 Body mass index [BMI] 50.0-59.9, adult; Z88.8 Allergy status to other drugs, medicaments and biological substances; Z28.310 Unvaccinated for COVID-19; Z79.899 Other long term (current) drug therapy
CPT/HCPCS: 36415; 36600; 70450; 71045; 71275; 80048; 80053; 82803; 82948; 83735; 83880; 84484; 85018; 85025; 85379; 85610; 85730; 87502; 87503; 87635; 93005; 93306; 94640; 94660; 94760; 97110; 97116; 97161; 97530; 99285; A4349; A4615; A6258; G0378; J0696; J1815; J1940; J1956; J2920; J2930; J3490; Q9967

== ENCOUNTER 2022-12-20 11:00 | Inpatient (IN) | payer MEDICAID ==
[~2022-12-20] VITALS: Ht 170.2 cm; Wt 154.7 kg
[~2022-12-20 11:00] MED LIST changes: +APIX5TAB3 PO; +ARIP10TA57 PO; -ARIP5TAB14 PO; +ATOR40TA72 PO; -CYCL-1 PO; +DILT180C87 PO; -GABA-532 PO; +IPRA3AMP9 NEB; +LEVO-65 PO; +METF-1203 PO; +OXYB15TA19 PO; +PANT40SU2 PO; -SIMV-42 PO; +VIBE75TA PO
[2022-12-20] MEDS ORDERED: acetaminophen 325mg tablet PO STA (11:17)
[2022-12-20] MEDS ORDERED: ipratropium/albuterol 3ml nebule NEB ONE (11:20)
[2022-12-20] MEDS ORDERED: CefTRIAXone 2gm/D5W 50ml BAG 50 ML IV ONE (11:30)
[2022-12-20] MEDS ORDERED: normal saline 1000ML IV soln IV ONE (11:30)
[2022-12-20] MEDS ORDERED: diltiazem 5mg/ml 5ml inj. IV ONE (11:40)
[2022-12-20 11:45] LABS: BASOPHILS # (AUTO) 0.1 X10'3 (0-0.2); BASOPHILS % (AUTO) 0.5 % (0-1); EOSINOPHILS # (AUTO) 0.1 X10'3 (0-0.9); EOSINOPHILS % (AUTO) 0.5 % (0-6); HEMATOCRIT 34.5 % (35.0-45.0); HEMOGLOBIN 10.4 g/dl (12.0-16.0); LYMPHOCYTES # (AUTO) 1.8 X10'3 (1.1-4.8); LYMPHOCYTES % (AUTO) 16.5 % (21-51); MEAN CORPUSCULAR HEMOGLOBIN 24.4 PG (27.0-31.0); MEAN CORPUSCULAR HGB CONC 30.1 g/dL (33.0-36.5); MEAN CORPUSCULAR VOLUME 81.3 FL (78-98); MEAN PLATELET VOLUME 7.5 FL (7.4-10.4); MONOCYTES # (AUTO) 0.8 X10'3 (0-0.9); MONOCYTES % (AUTO) 6.9 % (2-12); NEUTROPHILS # (AUTO) 8.3 X10'3 (1.8-7.7); NEUTROPHILS % (AUTO) 75.6 % (42-75); PLATELET COUNT 244 X10'3 (140-440); RED BLOOD COUNT 4.24 X10'6 (4.20-5.60); RED CELL DISTRIBUTION WIDTH 19.7 % (11.5-14.5)
[2022-12-20 12:14] LABS: ALANINE AMINOTRANSFERASE 15 U/L (12-78); ALBUMIN 3.5 G/DL (3.4-5.0); ALBUMIN/GLOBULIN RATIO 1.1 (1.1-1.5); ALKALINE PHOSPHATASE 77 IU/L (46-116); ANION GAP 4 (8-16); ASPARTATE AMINO TRANSFERASE 11 U/L (10-37); BLOOD UREA NITROGEN 15 MG/DL (7-18); BUN/CREATININE RATIO 24.6 (6.6-38.0); CALCIUM 8.9 MG/DL (8.5-10.1); CHLORIDE 103 MMOL/L (99-107); CREATININE 0.61 MG/DL (0.40-0.90); GLUCOSE 236 MG/DL (70-104); POTASSIUM 4.3 MMOL/L (3.5-5.1); SODIUM 143 MMOL/L (135-145); TOTAL CARBON DIOXIDE 36.4 MMOL/L (24-32); TOTAL PROTEIN 6.8 G/DL (6.4-8.2); eGFR > 90 ML/MIN
[2022-12-20] MEDS ORDERED: diltiazem-D5W 125mg/125ml 125 ML IV SCH (12:15)
[2022-12-20 12:16] LABS: BILIRUBIN,TOTAL 0.6 MG/DL (0.1-1.0)
[2022-12-20] MEDS: diltiazem-NS 100mg/100ml 100 ML IV SCH (12:34)
[2022-12-20 12:58] LABS: ABG BASE EXCESS 7.1 mmol/L (-2.0-2.0); ABG HCO3 35.9 mmol/L (22.0-26.0); ABG OXYGEN SATURATION 91.8 % (94-97); ABG PCO2 (T) 76.3 mmHg (32.0-45.0); ABG PO2 (T) 68.7 mmHg (75.0-100.0); ALLEN'S TEST POSITIVE; FCOHb 1.5 % (0.0-3.9); FLOW 8 L/min; FMetHb 0.2 % (0.0-1.5); FO2Hb 90.2 % (94-97); TOTAL HEMOGLOBIN 11.3 G/dl (12.0-16.0)
[2022-12-20] MEDS ORDERED: IPRA3AMP31 NEB (13:10)
[2022-12-20 13:18] LABS: ANISOCYTOSIS 2+; PLATELET ESTIMATE NORMAL
[2022-12-20 13:20] LABS: HYPOCHROMASIA 1+
[2022-12-20 13:21] LABS: ELLIPTOCYTES 1+
[2022-12-20 13:22] LABS: SCHISTOCYTES FEW; STOMATOCYTES 1+
[2022-12-20] MEDS ORDERED: CefTRIAXone/D5W-Rocephin 1gm 50 ML IV SCH (13:25)
[2022-12-20] MEDS ORDERED: PERFLUTREN PROTEIN-A MICROSPHR (Optison) 0.22 MG/ML 3ML VIAL IV ONE (13:25)
[2022-12-20] MEDS ORDERED: mag hydrox/Alum hydrox/simeth 30ml oral suspension PO PRN (13:25)
[2022-12-20] MEDS ORDERED: magnesium hydroxide 30ml (MOM) UD suspension PO PRN (13:25)
[2022-12-20 13:30] LABS: CLARITY,URINE CLOUDY (Clear); COLOR,URINE YELLOW (Yellow); GLUCOSE, URINE NEGATIVE (Neg); KETONES,URINE TRACE mg/dl (Neg); LEUKOCYTE ESTERASE ,URINE NEGATIVE (Neg); NITRITES, URINE NEGATIVE (Neg); OCCULT BLOOD,URINE NEGATIVE (Neg); PROTEIN,URINE TRACE mg/dl (Neg)
[2022-12-20 13:37] LABS: UA COLLECTION TYPE STRAIGHT CATH
[2022-12-20 13:38] LABS: MUCUS STRANDS MODERATE /LPF (Neg); SQUAMOUS EPITHELIAL CELL,UR MODERATE /LPF (FEW); TRANSITIONAL EPI CELLS,URINE MODERATE /HPF
[2022-12-20 13:39] LABS: BACTERIA,URINE FEW /HPF (Neg); CAL OXALATE CRYSTALS 1+ /HPF (NEGATIVE); HYALINE CASTS 0-3 /LPF (NEGATIVE)
[2022-12-20 13:40] LABS: RBC,URINE 0-2 /HPF (0-2); WBC,URINE 0-4 /HPF (0-4)
[2022-12-20] MEDS ORDERED: furosemide 10 MG/1 ML 10ml inj IV ONE (14:35)
[2022-12-20] MEDS ORDERED: ipratropium/albuterol 3ml nebule NEB PRN (14:45)
[2022-12-20] MEDS ORDERED: ipratropium/albuterol 3ml nebule NEB SCH (15:00)
[2022-12-20] MEDS: ipratropium/albuterol 3ml nebule NEB SCH ×2 (15:14→21:09)
[2022-12-20 15:34] LABS: ABG BASE EXCESS 7.2 mmol/L (-2.0-2.0); ABG HCO3 35.7 mmol/L (22.0-26.0); ABG PCO2 (T) 73.3 mmHg (32.0-45.0); ABG PO2 (T) 81.2 mmHg (75.0-100.0); ALLEN'S TEST POSITIVE; FCOHb 1.5 % (0.0-3.9); FMetHb 0.3 % (0.0-1.5); FO2Hb 93.3 % (94-97); TOTAL HEMOGLOBIN 11.3 G/dl (12.0-16.0)
[2022-12-20] MEDS: methylPREDNISolone sod succ 125mg/2ml vial IV SCH ×2 (16:18→23:28)
--- NOTE | 2022-12-20 17:49 | NUR ---
RN ATTEMPTED TO CALL REPORT TO PCU AND ADELA HEART STATED THAT NURSING INDUSTRIAL STAFF NURSE WANTS PT TRANFERRED AT 1830 D/T [facility].
[2022-12-20] MEDS: docusate sod 100mg capsule PO SCH (20:00)
[2022-12-20] MEDS: furosemide 10 MG/1 ML 10ml inj IV SCH (20:00)
[2022-12-20 22:15] VITALS: BP 99/77
--- NOTE | 2022-12-20 22:27 | NUR ---
CALLED MD WEBSTER FOR BODY LICE TREATMENT.
[2022-12-20] MEDS ORDERED: Permethrin 1% 59ml topical rinse TP ONE (22:30)
[2022-12-20] MEDS ORDERED: Permethrin Cream 60gm TP ONE (22:30)
[2022-12-20] MEDS: apixaban 5mg tablet PO SCH (23:28)
[2022-12-20] MEDS: acetaminophen 325mg tablet PO PRN (23:42)
[2022-12-21] VITALS (11 sets, daily range): BP systolic 107–136; BP diastolic 55–84
--- NOTE | 2022-12-21 | NUR ---
Pt. is awake alert oriented on 02 3L NC. Lungs sound diminished. Pt. is on Cardizem gtt 5 mg/hr for afib hr 130. Pt. has a Curry with usman clear urine large amt. Pt. c/o swollen legs and back pain medicated as needed, tolerated well effective relief. HR remained in 130 with Bp 132/86. 2200 Notified Cardizem rate changed to 7.5 mg/hr. 2300 Pt. expressed desire to go on BIPAP slept most of the night.0200 HR now 97 afib with bp 95/59 no further c/o pain.
--- NOTE | 2022-12-21 00:40 | NUR ---
TREATMENT FOR BODY LICE AND HAIR COMPLETED. PATIENT HAS EXTENSIVE LICE INFESTATION. NO OPEN SKIN, POSSIBLE FUNGAL TREATMENT NEEDED FOR FEET, NYSTatin for breasts and pannus needed.
--- NOTE | 2022-12-21 01:05 | NUR ---
Patient will need shower at 0830 to remove permetherin application and hair treatment. will inform day shift RN
[2022-12-21] MEDS: nystatin 15 GM powder TP SCH ×4 (01:07→21:00)
[2022-12-21] MEDS: furosemide 10 MG/1 ML 10ml inj IV SCH ×3 (01:07→20:18)
--- NOTE | 2022-12-21 01:07 | NUR ---
Nystatin ordered by UNA Oliver-on hold until shower/bath for permetherin completed at 0830-will apply after scabies treatment completed by day shift. Joss Oliver RN
[2022-12-21] MEDS: ipratropium/albuterol 3ml nebule NEB SCH ×4 (01:23→20:04)
--- NOTE | 2022-12-21 01:41 | NUR ---
patient now on bipap, fio2 at 35%
--- NOTE | 2022-12-21 06:38 | NUR ---
Problems reprioritized. Patient report given, questions answered & plan of care reviewed with Chidi HEART.
[2022-12-21 07:07] LABS: BASOPHILS % (AUTO) 0.3 % (0-1); EOSINOPHILS % (AUTO) 0 % (0-6); HEMATOCRIT 32.3 % (35.0-45.0); HEMOGLOBIN 10.1 g/dl (12.0-16.0); LYMPHOCYTES # (AUTO) 0.9 X10'3 (1.1-4.8); MEAN CORPUSCULAR HEMOGLOBIN 24.6 PG (27.0-31.0); MEAN CORPUSCULAR HGB CONC 31.1 g/dL (33.0-36.5); MEAN PLATELET VOLUME 7.7 FL (7.4-10.4); MONOCYTES # (AUTO) 0.2 X10'3 (0-0.9); MONOCYTES % (AUTO) 2.1 % (2-12); NEUTROPHILS # (AUTO) 8.9 X10'3 (1.8-7.7); NEUTROPHILS % (AUTO) 88.6 % (42-75); PLATELET COUNT 236 X10'3 (140-440); RED BLOOD COUNT 4.09 X10'6 (4.20-5.60); RED CELL DISTRIBUTION WIDTH 19.6 % (11.5-14.5); WHITE BLOOD COUNT 10.1 X10'3 (4.5-11.0)
[2022-12-21 07:14] LABS: ALBUMIN 3.3 G/DL (3.4-5.0); ANION GAP 2 (8-16); BLOOD UREA NITROGEN 16 MG/DL (7-18); BUN/CREATININE RATIO 28.1 (6.6-38.0); CALCIUM 8.8 MG/DL (8.5-10.1); CHLORIDE 101 MMOL/L (99-107); CREATININE 0.57 MG/DL (0.40-0.90); GLUCOSE 193 MG/DL (70-104); SODIUM 143 MMOL/L (135-145); TOTAL CARBON DIOXIDE 39.6 MMOL/L (24-32); eGFR > 90 ML/MIN
[2022-12-21 07:46] LABS: HEMOGLOBIN A1C 7.2 % (4.5-6.2)
[2022-12-21] MEDS: docusate sod 100mg capsule PO SCH ×2 (08:00→20:18)
[2022-12-21] MEDS ORDERED: VIBEGRON PO SCH (08:00)
[2022-12-21] MEDS: CefTRIAXone/D5W-Rocephin 1gm 50 ML IV SCH (08:31)
[2022-12-21] MEDS: oxybutynin 5mg tablet PO SCH ×2 (08:32→20:19)
[2022-12-21] MEDS: FLUoxetine 20mg capsule PO SCH (08:32)
[2022-12-21] MEDS: apixaban 5mg tablet PO SCH ×2 (08:32→20:19)
[2022-12-21] MEDS: atorvastatin 20mg tablet PO SCH (08:33)
[2022-12-21] MEDS: ARIPIPRAZOLE 10 MG TABLET PO SCH (08:33)
[2022-12-21] MEDS: methylPREDNISolone sod succ 125mg/2ml vial IV SCH ×2 (08:34→16:47)
[2022-12-21] MEDS: diltiazem-NS 100mg/100ml 100 ML IV SCH (08:38)
[2022-12-21] MEDS ORDERED: MESSAGE TO PHARMACY PO ONE (09:50)
[2022-12-21] MEDS ORDERED: DEXTROSE 15 GM of carb/4 tabs (each vial/BOTTLE has 4 tablets) PO PRN ×2 (09:50)
[2022-12-21] MEDS ORDERED: glucagon, human recombinant 1mg kit SUBCUT PRN (09:50)
[2022-12-21] MEDS ORDERED: dextrose 50%-water 50ml dispensing syringe IV PRN ×2 (09:50)
--- NOTE | 2022-12-21 11:54 | NUR ---
PAGER ID: [phone] MESSAGE: Ricarda [id number], Pt has patient's own med, Vibegron, that they don't have and can not bring in. Can we DC the med? Chidi [phone]
--- NOTE | 2022-12-21 12:54 | NUR ---
PAGER ID: [phone] MESSAGE: Ricarda [id number], Pt had a positive blood culture showing Gram+ cocci clusters. Specimen was drawn from right arm on the 15 and showed positive after 23.5 hrs. Chidi Nation29
[2022-12-21] MEDS: insulin Lispro (HumaLOG) vial - multi-dose SQ SCH (14:13)
--- NOTE | 2022-12-21 15:43 | NUR ---
DM Consult: Pt hx T2DM on metformin A1C 7.2% per EMR. Written DM diet ed w/ RD contact information placed in pt chart. Noted pt initial wt 320kg supposed to be pounds s/p first scaled wt via bed scale 154.7kg true BMI 53.4. Addendum: 12/21/22 at [address] Amended: Links added.
[2022-12-21] MEDS: ondansetron/PF 4mg/2ml inj IV PRN (20:17)
[2022-12-21] MEDS: acetaminophen 325mg tablet PO PRN (20:19)
[2022-12-21] MEDS: insulin glargine (Lantus) pen - multi-dose SQ SCH (22:35)
[2022-12-22] VITALS (8 sets, daily range): BP systolic 95–125; BP diastolic 56–85
[2022-12-22] MEDS: methylPREDNISolone sod succ 125mg/2ml vial IV SCH ×3 (00:33→20:00)
[2022-12-22] MEDS: diltiazem-NS 100mg/100ml 100 ML IV SCH ×2 (00:35→04:16)
[2022-12-22] MEDS: ipratropium/albuterol 3ml nebule NEB SCH ×4 (03:39→19:46)
[2022-12-22 07:29] LABS: BASOPHILS % (AUTO) 0.1 % (0-1); EOSINOPHILS % (AUTO) 0 % (0-6); HEMATOCRIT 33.9 % (35.0-45.0); HEMOGLOBIN 10.1 g/dl (12.0-16.0); LYMPHOCYTES # (AUTO) 0.7 X10'3 (1.1-4.8); LYMPHOCYTES % (AUTO) 6.4 % (21-51); MEAN CORPUSCULAR HEMOGLOBIN 24.1 PG (27.0-31.0); MEAN CORPUSCULAR HGB CONC 29.9 g/dL (33.0-36.5); MEAN CORPUSCULAR VOLUME 80.8 FL (78-98); MONOCYTES # (AUTO) 0.3 X10'3 (0-0.9); MONOCYTES % (AUTO) 2.8 % (2-12); NEUTROPHILS # (AUTO) 9.8 X10'3 (1.8-7.7); NEUTROPHILS % (AUTO) 90.7 % (42-75); PLATELET COUNT 227 X10'3 (140-440); RED BLOOD COUNT 4.19 X10'6 (4.20-5.60); WHITE BLOOD COUNT 10.8 X10'3 (4.5-11.0)
[2022-12-22 07:43] LABS: ALBUMIN 3.3 G/DL (3.4-5.0); ANION GAP 2 (8-16); BLOOD UREA NITROGEN 25 MG/DL (7-18); BUN/CREATININE RATIO 33.3 (6.6-38.0); CHLORIDE 99 MMOL/L (99-107); CREATININE 0.75 MG/DL (0.40-0.90); GLUCOSE 297 MG/DL (70-104); POTASSIUM 4.5 MMOL/L (3.5-5.1); SODIUM 142 MMOL/L (135-145); eGFR 78 ML/MIN
[2022-12-22 07:47] LABS: TOTAL CARBON DIOXIDE 40.6 MMOL/L (24-32)
--- NOTE | 2022-12-22 07:51 | NUR ---
PAGER ID: [phone] MESSAGE: Ricarda [id number], Pt has a critical lab value CO2 - 40.6 up from 39.6 yesterday. Chidi [phone]
[2022-12-22] MEDS: docusate sod 100mg capsule PO SCH ×2 (08:00→20:01)
[2022-12-22] MEDS: nystatin 15 GM powder TP SCH ×3 (08:00→21:45)
[2022-12-22] MEDS: CefTRIAXone/D5W-Rocephin 1gm 50 ML IV SCH (09:03)
[2022-12-22] MEDS: furosemide 10 MG/1 ML 10ml inj IV SCH ×2 (09:04→19:59)
[2022-12-22] MEDS: FLUoxetine 20mg capsule PO SCH (09:05)
[2022-12-22] MEDS: atorvastatin 20mg tablet PO SCH (09:05)
[2022-12-22] MEDS: ARIPIPRAZOLE 10 MG TABLET PO SCH (09:06)
[2022-12-22] MEDS: apixaban 5mg tablet PO SCH ×2 (09:06→20:01)
[2022-12-22] MEDS: oxybutynin 5mg tablet PO SCH ×2 (09:06→20:01)
[2022-12-22] MEDS ORDERED: diltiazem CD 180mg cap (once-daily) PO SCH (10:38)
[2022-12-22] MEDS: insulin Lispro (HumaLOG) vial - multi-dose SQ SCH ×3 (11:09→20:05)
--- NOTE | 2022-12-22 13:17 | NUR ---
Dr. Whitlock gave me verbal orders for pt's still high HR in the 120's now that she is off the Cardizem drip. He told me to give her another 60 mg PO 1x now, and to change order to 240mg PO daily. Will do so now and monitor pt.
[2022-12-22] MEDS ORDERED: diltiazem 30mg tablet PO ONE (13:35)
[2022-12-22] MEDS: insulin glargine (Lantus) pen - multi-dose SQ SCH (21:45)
[2022-12-23 02:00] VITALS: BP 118/79
[2022-12-23] MEDS: ipratropium/albuterol 3ml nebule NEB SCH ×4 (02:00→21:10)
[2022-12-23 06:00] VITALS: BP 114/78
--- NOTE | 2022-12-23 06:53 | NUR ---
Patient in room PCU 3019I. I have received report from Royer HEART and had the opportunity to ask questions and assume patient care. Pt is laying high fowlers in bed, and is resting comfortably. Pt on 5L NC. No s/s of distress, no s/s of pain at this time, BLL, call light wihtin reach, frequently used items in reach, freqeunt rounding, technical rep socks on. Will continue to monitor.
[2022-12-23] MEDS: docusate sod 100mg capsule PO SCH ×2 (08:00→20:19)
[2022-12-23] MEDS: CefTRIAXone/D5W-Rocephin 1gm 50 ML IV SCH (08:00)
[2022-12-23 08:09] LABS: BASOPHILS % (AUTO) 0.2 % (0-1); EOSINOPHILS % (AUTO) 0 % (0-6); HEMATOCRIT 34.1 % (35.0-45.0); HEMOGLOBIN 10.3 g/dl (12.0-16.0); LYMPHOCYTES # (AUTO) 1.2 X10'3 (1.1-4.8); LYMPHOCYTES % (AUTO) 9.9 % (21-51); MEAN CORPUSCULAR HEMOGLOBIN 23.9 PG (27.0-31.0); MEAN CORPUSCULAR HGB CONC 30.3 g/dL (33.0-36.5); MEAN CORPUSCULAR VOLUME 78.9 FL (78-98); MEAN PLATELET VOLUME 7.6 FL (7.4-10.4); MONOCYTES # (AUTO) 0.5 X10'3 (0-0.9); MONOCYTES % (AUTO) 4.4 % (2-12); NEUTROPHILS # (AUTO) 10.5 X10'3 (1.8-7.7); NEUTROPHILS % (AUTO) 85.5 % (42-75); PLATELET COUNT 231 X10'3 (140-440); RED BLOOD COUNT 4.32 X10'6 (4.20-5.60); RED CELL DISTRIBUTION WIDTH 19.5 % (11.5-14.5); WHITE BLOOD COUNT 12.3 X10'3 (4.5-11.0)
[2022-12-23] MEDS: insulin Lispro (HumaLOG) vial - multi-dose SQ SCH ×2 (08:16→14:03)
[2022-12-23] MEDS: furosemide 10 MG/1 ML 10ml inj IV SCH ×2 (08:20→20:19)
[2022-12-23] MEDS: diltiazem CD 120mg capsule (once-daily) PO SCH (08:21)
[2022-12-23] MEDS: atorvastatin 20mg tablet PO SCH (08:21)
[2022-12-23] MEDS: oxybutynin 5mg tablet PO SCH ×2 (08:21→20:19)
[2022-12-23] MEDS: nystatin 15 GM powder TP SCH ×3 (08:21→21:07)
[2022-12-23] MEDS: apixaban 5mg tablet PO SCH ×2 (08:21→20:19)
[2022-12-23] MEDS: ARIPIPRAZOLE 10 MG TABLET PO SCH (08:21)
[2022-12-23] MEDS: methylPREDNISolone sod succ 125mg/2ml vial IV SCH ×2 (08:21→20:19)
[2022-12-23] MEDS: FLUoxetine 20mg capsule PO SCH (08:21)
[2022-12-23 08:26] LABS: ALBUMIN 3.4 G/DL (3.4-5.0); ANION GAP 2 (8-16); BLOOD UREA NITROGEN 31 MG/DL (7-18); BUN/CREATININE RATIO 51.7 (6.6-38.0); CALCIUM 9.3 MG/DL (8.5-10.1); CHLORIDE 98 MMOL/L (99-107); GLUCOSE 198 MG/DL (70-104); POTASSIUM 4.6 MMOL/L (3.5-5.1); SODIUM 143 MMOL/L (135-145); eGFR > 90 ML/MIN
[2022-12-23 08:36] LABS: TOTAL CARBON DIOXIDE 42.9 MMOL/L (24-32)
[2022-12-23 08:39] LABS: ANISOCYTOSIS 2+; HYPOCHROMASIA 1+; MICROCYTOSIS 1+; PLATELET ESTIMATE NORMAL; POIKILOCYTOSIS FEW; POLYCHROMASIA FEW; STOMATOCYTES FEW
--- NOTE | 2022-12-23 08:50 | NUR ---
PAGER ID: [phone] MESSAGE: Brea Chowdary 3014B: Crit CO2 42.9, Prior CO2 40.6 39.6. Pt refused bipap @ HS. States she will wear it later today. -Neisha EXT [phone]
--- NOTE | 2022-12-23 10:36 | NUR ---
Brea Chowdary [id number] would like ABG, when you get a chance. Thank you. -Neisha ext [phone]
[2022-12-23 11:00] VITALS: BP 107/65
[2022-12-23 11:00] LABS: ABG BASE EXCESS 10.3 mmol/L (-2.0-2.0); ABG HCO3 36.9 mmol/L (22.0-26.0); ABG OXYGEN SATURATION 87.1 % (94-97); ABG PCO2 (T) 59.6 mmHg (32.0-45.0); ABG PO2 (T) 52.7 mmHg (75.0-100.0); ALLEN'S TEST POSITIVE; FCOHb 0.5 % (0.0-3.9); FLOW 5 L/min; FMetHb 0.3 % (0.0-1.5); FO2Hb 86.4 % (94-97); PATIENT TEMPERATURE 36.9; TOTAL HEMOGLOBIN 11.4 G/dl (12.0-16.0)
[2022-12-23 13:00] VITALS: BP 118/66
[2022-12-23 18:00] VITALS: BP 113/60
--- NOTE | 2022-12-23 18:36 | NUR ---
Problems reprioritized. Patient report given, questions answered & plan of care reviewed with Sallie RN.
[2022-12-23] MEDS: ondansetron/PF 4mg/2ml inj IV PRN (20:22)
[2022-12-23] MEDS: acetaminophen 325mg tablet PO PRN (20:23)
[2022-12-23 22:00] VITALS: BP 116/63
[2022-12-23] MEDS: insulin glargine (Lantus) pen - multi-dose SQ SCH (22:10)
--- NOTE | 2022-12-24 | NUR ---
Pt.is awake alert oriented on 02 5L NC. Recognizes familiar faces. Appears to be in good spirits ate 100% of meal able to feed self. Pt. is unaware of clothing contamination and was inquiring about a dress. Pt. has 2 peripheral IV/SL. Able to pull self up in bed with assistance. Curry with large amt of yellow clear urine. Plan for PT eval and treat soon awaiting LTC placement.
[2022-12-24 03:00] VITALS: BP 122/68
[2022-12-24] MEDS: ipratropium/albuterol 3ml nebule NEB SCH ×4 (03:13→20:16)
--- NOTE | 2022-12-24 05:00 | NUR ---
Pt. was on BIPAP form 2200 to 0400 this am. Tolerated well. Sats were low with left side lying position. Pt. now in morejon's position sats 95% on 5L NC.
[2022-12-24 06:00] VITALS: BP 126/64
[2022-12-24 06:42] LABS: BASOPHILS % (AUTO) 0 % (0-1); EOSINOPHILS % (AUTO) 0 % (0-6); HEMATOCRIT 33.7 % (35.0-45.0); HEMOGLOBIN 10.3 g/dl (12.0-16.0); LYMPHOCYTES # (AUTO) 0.9 X10'3 (1.1-4.8); LYMPHOCYTES % (AUTO) 9.6 % (21-51); MEAN CORPUSCULAR HEMOGLOBIN 24.2 PG (27.0-31.0); MEAN CORPUSCULAR HGB CONC 30.5 g/dL (33.0-36.5); MEAN CORPUSCULAR VOLUME 79.2 FL (78-98); MEAN PLATELET VOLUME 7.7 FL (7.4-10.4); MONOCYTES # (AUTO) 0.5 X10'3 (0-0.9); NEUTROPHILS # (AUTO) 8.4 X10'3 (1.8-7.7); NEUTROPHILS % (AUTO) 85.4 % (42-75); PLATELET COUNT 206 X10'3 (140-440); RED BLOOD COUNT 4.25 X10'6 (4.20-5.60); WHITE BLOOD COUNT 9.9 X10'3 (4.5-11.0)
[2022-12-24 06:49] LABS: ANION GAP -1 (8-16); BLOOD UREA NITROGEN 29 MG/DL (7-18); BUN/CREATININE RATIO 46.8 (6.6-38.0); CHLORIDE 101 MMOL/L (99-107); CREATININE 0.62 MG/DL (0.40-0.90); GLUCOSE 306 MG/DL (70-104); POTASSIUM 4.6 MMOL/L (3.5-5.1); SODIUM 144 MMOL/L (135-145); eGFR > 90 ML/MIN
[2022-12-24 06:52] LABS: TOTAL CARBON DIOXIDE 43.6 MMOL/L (24-32)
--- NOTE | 2022-12-24 06:55 | NUR ---
PAGER ID: [phone] MESSAGE: Brea Chowdary [id number]- Elementary Math Tutor CO2 of 43.6 up trend from 42.9, & 40.6. -Neisha EXT [phone].
--- NOTE | 2022-12-24 07:02 | NUR ---
Patient in room PCU 3014B. I have received report from Sallie HEART and had the opportunity to ask questions and assume patient care. Pt is laying high fowlers in bed, and is resting comfortably. Pt on 5L NC, no s/s of distress, no s/s of pain at time. Pt has a Crit CO2 lvl of 43.6, MD notified. NNO given at this time. BLL, call light within reach, frequently used items in reach, frequent rounding, aircraft engine mechanic overhaul socks on. Will continue to monitor.
[2022-12-24] MEDS: apixaban 5mg tablet PO SCH ×2 (08:25→19:53)
[2022-12-24] MEDS: atorvastatin 20mg tablet PO SCH (08:25)
[2022-12-24] MEDS: oxybutynin 5mg tablet PO SCH ×2 (08:25→19:52)
[2022-12-24] MEDS: docusate sod 100mg capsule PO SCH ×2 (08:25→19:52)
[2022-12-24] MEDS: FLUoxetine 20mg capsule PO SCH (08:25)
[2022-12-24] MEDS: ARIPIPRAZOLE 10 MG TABLET PO SCH (08:26)
[2022-12-24] MEDS: diltiazem CD 120mg capsule (once-daily) PO SCH (08:26)
[2022-12-24] MEDS: CefTRIAXone/D5W-Rocephin 1gm 50 ML IV SCH (08:26)
[2022-12-24] MEDS: furosemide 10 MG/1 ML 10ml inj IV SCH (08:32)
[2022-12-24] MEDS: methylPREDNISolone sod succ 125mg/2ml vial IV SCH ×2 (08:33→19:53)
[2022-12-24] MEDS: nystatin 15 GM powder TP SCH ×3 (08:51→21:26)
[2022-12-24] MEDS: insulin Lispro (HumaLOG) vial - multi-dose SQ SCH ×3 (08:51→19:51)
[2022-12-24] MEDS ORDERED: acetaZOLAMIDE 250mg tablet PO ONE (13:55)
--- NOTE | 2022-12-24 14:45 | NUR ---
PAGER ID: [phone] MESSAGE: Brea Chowdary [id number]: Pharm unable to fill 500mg Acetacetazolimide. Pharm only has 250mg . Med is a capsule, unable to split. -Neisha EXT [phone]
[2022-12-24] MEDS: acetaZOLAMIDE 500mg capsule.SA PO SCH (16:07)
--- NOTE | 2022-12-24 18:48 | NUR ---
Problems reprioritized. Patient report given, questions answered & plan of care reviewed with Gianni HEART.
[2022-12-24 19:08] VITALS: BP 136/70
[2022-12-24] MEDS ORDERED: acetaZOLAMIDE 250mg tablet PO SCH (20:00)
[2022-12-24] MEDS: insulin glargine (Lantus) pen - multi-dose SQ SCH (21:20)
[2022-12-24 22:00] VITALS: BP 122/70
[2022-12-25 03:00] VITALS: BP 105/56
[2022-12-25] MEDS: ipratropium/albuterol 3ml nebule NEB SCH ×4 (03:14→21:23)
--- NOTE | 2022-12-25 06:32 | NUR ---
Problems reprioritized. Patient report given, questions answered & plan of care reviewed with Sarai HEART.
[2022-12-25 07:00] VITALS: BP 126/70
[2022-12-25 07:03] LABS: BASOPHILS % (AUTO) 0.2 % (0-1); EOSINOPHILS % (AUTO) 0.1 % (0-6); HEMATOCRIT 35.3 % (35.0-45.0); HEMOGLOBIN 10.8 g/dl (12.0-16.0); LYMPHOCYTES % (AUTO) 9.9 % (21-51); MEAN CORPUSCULAR HEMOGLOBIN 24.2 PG (27.0-31.0); MEAN CORPUSCULAR HGB CONC 30.5 g/dL (33.0-36.5); MEAN CORPUSCULAR VOLUME 79.3 FL (78-98); MEAN PLATELET VOLUME 7.9 FL (7.4-10.4); MONOCYTES # (AUTO) 0.5 X10'3 (0-0.9); MONOCYTES % (AUTO) 5.1 % (2-12); NEUTROPHILS # (AUTO) 8.4 X10'3 (1.8-7.7); NEUTROPHILS % (AUTO) 84.7 % (42-75); PLATELET COUNT 213 X10'3 (140-440); RED BLOOD COUNT 4.45 X10'6 (4.20-5.60); RED CELL DISTRIBUTION WIDTH 19.1 % (11.5-14.5); WHITE BLOOD COUNT 9.9 X10'3 (4.5-11.0)
[2022-12-25 07:06] LABS: ALBUMIN 3.2 G/DL (3.4-5.0); ANION GAP 1 (8-16); BLOOD UREA NITROGEN 26 MG/DL (7-18); BUN/CREATININE RATIO 35.6 (6.6-38.0); CALCIUM 9.4 MG/DL (8.5-10.1); CHLORIDE 99 MMOL/L (99-107); CREATININE 0.73 MG/DL (0.40-0.90); GLUCOSE 338 MG/DL (70-104); POTASSIUM 4.2 MMOL/L (3.5-5.1); SODIUM 140 MMOL/L (135-145); TOTAL CARBON DIOXIDE 39.6 MMOL/L (24-32); eGFR 80 ML/MIN
[2022-12-25] MEDS: acetaZOLAMIDE 500mg capsule.SA PO SCH (08:00)
[2022-12-25] MEDS: CefTRIAXone/D5W-Rocephin 1gm 50 ML IV SCH (09:05)
[2022-12-25] MEDS: furosemide 10 MG/1 ML 10ml inj IV SCH (09:05)
[2022-12-25] MEDS: ARIPIPRAZOLE 10 MG TABLET PO SCH (09:06)
[2022-12-25] MEDS: methylPREDNISolone sod succ 125mg/2ml vial IV SCH ×2 (09:06→20:11)
[2022-12-25] MEDS: docusate sod 100mg capsule PO SCH ×2 (09:08→20:00)
[2022-12-25] MEDS: FLUoxetine 20mg capsule PO SCH (09:08)
[2022-12-25] MEDS: oxybutynin 5mg tablet PO SCH ×2 (09:08→20:09)
[2022-12-25] MEDS: apixaban 5mg tablet PO SCH ×2 (09:08→20:09)
[2022-12-25] MEDS: diltiazem CD 120mg capsule (once-daily) PO SCH (09:09)
[2022-12-25] MEDS: nystatin 15 GM powder TP SCH ×3 (09:09→21:26)
[2022-12-25] MEDS: atorvastatin 20mg tablet PO SCH (09:09)
[2022-12-25] MEDS: insulin Lispro (HumaLOG) vial - multi-dose SQ SCH ×3 (09:18→20:01)
[2022-12-25 11:00] VITALS: BP 111/77
--- NOTE | 2022-12-25 12:38 | NUR ---
Page Sent promotional table spacer PAGER ID: [phone] MESSAGE: [id number] Belt. PT has consistently high BG. She is getting 40mg solumedrol BID . I gave her 39 units short acting after breakfast and BG before lunch was 372. we might consider giving her some lantus . Sarai@[phone] (210 character message out of a maximum of 240)
--- NOTE | 2022-12-25 13:22 | NUR ---
Initial: Pt admit DX acute respiratory failure, CHF/COPD exacerbations, PNA, T2DM, and bed bugs per EMR. PO ~100% avg carb controlled/heart healthy meals meeting estimated needs. Glu 273-338mg/dl on glycemic protocol and solumedrol w/ paged today regarding increased lantus frequency per EMR. LBM 12/20 in EMR though per RN today actually 12/24 receiving routine colace and PRN MoM last given 12/24 per EMR. No nutrition interventions at this time. Will continue to follow. Rec: 1. continue carb controlled/heart healthy diet per MD 2. routine bowel care 3. weekly wts Addendum: 12/25/22 at [address] Amended: Links added.
[2022-12-25 15:00] VITALS: BP 111/60
[2022-12-25] MEDS: insulin glargine (Lantus) pen - multi-dose SQ SCH (21:24)
[2022-12-25 22:00] VITALS: BP 97/59
[2022-12-26 02:00] VITALS: BP 137/83
[2022-12-26] MEDS: ipratropium/albuterol 3ml nebule NEB SCH ×4 (02:00→20:00)
[2022-12-26 06:26] LABS: ALBUMIN 3.3 G/DL (3.4-5.0); ANION GAP 3 (8-16); BLOOD UREA NITROGEN 27 MG/DL (7-18); BUN/CREATININE RATIO 34.2 (10.0-20.0); CALCIUM 9.3 MG/DL (8.5-10.1); CHLORIDE 102 MMOL/L (99-107); CREATININE 0.79 MG/DL (0.40-0.90); GLUCOSE 272 MG/DL (70-104); POTASSIUM 4.2 MMOL/L (3.5-5.1); SODIUM 141 MMOL/L (135-145); TOTAL CARBON DIOXIDE 35.7 MMOL/L (24-32); eGFR 73 ML/MIN
[2022-12-26 07:00] VITALS: BP 137/91
[2022-12-26] MEDS: oxybutynin 5mg tablet PO SCH ×2 (09:03→20:27)
[2022-12-26] MEDS: ARIPIPRAZOLE 10 MG TABLET PO SCH (09:03)
[2022-12-26] MEDS: atorvastatin 20mg tablet PO SCH (09:04)
[2022-12-26] MEDS: docusate sod 100mg capsule PO SCH ×2 (09:04→20:00)
[2022-12-26] MEDS: FLUoxetine 20mg capsule PO SCH (09:05)
[2022-12-26] MEDS: apixaban 5mg tablet PO SCH ×2 (09:05→20:27)
[2022-12-26] MEDS: diltiazem CD 120mg capsule (once-daily) PO SCH (09:06)
[2022-12-26] MEDS: CefTRIAXone/D5W-Rocephin 1gm 50 ML IV SCH (09:07)
[2022-12-26] MEDS: furosemide 10 MG/1 ML 10ml inj IV SCH (09:10)
[2022-12-26] MEDS: methylPREDNISolone sod succ 125mg/2ml vial IV SCH ×2 (09:13→20:00)
[2022-12-26] MEDS: nystatin 15 GM powder TP SCH ×3 (09:14→20:31)
[2022-12-26] MEDS: insulin Lispro (HumaLOG) vial - multi-dose SQ SCH ×2 (09:18→20:21)
[2022-12-26 11:00] VITALS: BP 116/64
[2022-12-26] MEDS ORDERED: POTA-207 PO (12:25)
[2022-12-26] MEDS ORDERED: FURO40TA4 PO (12:25)
[2022-12-26] MEDS ORDERED: CEFD300C3 PO (12:25)
[2022-12-26] MEDS ORDERED: PRED20TA PO (12:25)
[2022-12-26 15:00] VITALS: BP 126/71
--- NOTE | 2022-12-26 15:51 | NUR ---
O2 Sat at rest on room air:_79__% If below 89%: Recovery O2 Sat at rest on _5__LPM:_79__%:_92__% via____nasal cannula (mask/nasal cannula, etc..) No further documentation is necessary. If O2 Sat did not drop below 89% on room air,ambulate patient on room air. O2 Sat while ambulating on room air:___% Recovery O2 Sat while ambulating on ___LPM:___% No further documentation is necessary. If patient does not drop below 89% while ambulating, he/she does not qualify for home O2.
--- NOTE | 2022-12-26 16:14 | NUR ---
after lunch insulin not administered due to emergency with another patient. No resource RN and no other RN available at time to ask to give insulin.
[2022-12-26 18:00] VITALS: BP 119/69
--- NOTE | 2022-12-26 18:15 | NUR ---
Problems reprioritized. Patient report given, questions answered & plan of care reviewed with Juan CHAUHAN. Patient is resting in chair in no acute distress.
[2022-12-26] MEDS: insulin glargine (Lantus) pen - multi-dose SQ SCH (20:24)
[2022-12-27 01:33] VITALS: BP 114/66
[2022-12-27] MEDS: ipratropium/albuterol 3ml nebule NEB SCH ×2 (02:00→08:00)
[2022-12-27] MEDS: apixaban 5mg tablet PO SCH (07:51)
[2022-12-27] MEDS: FLUoxetine 20mg capsule PO SCH (07:51)
[2022-12-27] MEDS: atorvastatin 20mg tablet PO SCH (07:52)
[2022-12-27] MEDS: oxybutynin 5mg tablet PO SCH (07:52)
[2022-12-27] MEDS: ARIPIPRAZOLE 10 MG TABLET PO SCH (07:53)
[2022-12-27] MEDS: diltiazem CD 120mg capsule (once-daily) PO SCH (07:53)
[2022-12-27] MEDS: nystatin 15 GM powder TP SCH (07:55)
[2022-12-27] MEDS: CefTRIAXone/D5W-Rocephin 1gm 50 ML IV SCH (08:00)
[2022-12-27] MEDS: methylPREDNISolone sod succ 125mg/2ml vial IV SCH (08:00)
[2022-12-27] MEDS: docusate sod 100mg capsule PO SCH (08:00)
[2022-12-27] MEDS: furosemide 10 MG/1 ML 10ml inj IV SCH (08:00)
--- NOTE | 2022-12-27 09:52 | NUR ---
Pt was DC'd as per Dr's orders. Pt was unhooked from all IV and tele. Education was provided at bedside to pt and all questions answered. Pt gathered belongings and took with them. 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 Pt was taken down to lobby by med transport staff. Pt left hospital in [facility] destined for home.
== END 2022-12-27 09:21 | disposition home or self-care (01) | DRG 139 ==
LOC: ER 11:00 → ED HOLD 13:23 → PCU 3S 21:29
PROVIDERS: ADMIT Family Medicine; ATTEND Family Medicine
PROC: 5A09357 Assistance with Respiratory Ventilation, Less than 24 Consecutive Hours, Continuous Positive Airway Pressure (ICD-10-PCS; principal; 2022-12-20)
PROC: 5A09357 Assistance with Respiratory Ventilation, Less than 24 Consecutive Hours, Continuous Positive Airway Pressure (ICD-10-PCS; 2022-12-21)
PROC: 5A09357 Assistance with Respiratory Ventilation, Less than 24 Consecutive Hours, Continuous Positive Airway Pressure (ICD-10-PCS; 2022-12-22)
PROC: 5A09357 Assistance with Respiratory Ventilation, Less than 24 Consecutive Hours, Continuous Positive Airway Pressure (ICD-10-PCS; 2022-12-23)
PROC: 5A09357 Assistance with Respiratory Ventilation, Less than 24 Consecutive Hours, Continuous Positive Airway Pressure (ICD-10-PCS; 2022-12-24)
PROC: 5A09357 Assistance with Respiratory Ventilation, Less than 24 Consecutive Hours, Continuous Positive Airway Pressure (ICD-10-PCS; 2022-12-25)
DX: J18.9 Pneumonia, unspecified organism (principal); J96.21 Acute and chronic respiratory failure with hypoxia; I50.43 Acute on chronic combined systolic (congestive) and diastolic (congestive) heart failure; E87.4 Mixed disorder of acid-base balance; E11.9 Type 2 diabetes mellitus without complications; I11.0 Hypertensive heart disease with heart failure; E66.01 Morbid (severe) obesity due to excess calories; Z66 Do not resuscitate; J44.0 Chronic obstructive pulmonary disease with (acute) lower respiratory infection; Z20.822 Contact with and (suspected) exposure to COVID-19; F32.A Depression, unspecified; F41.9 Anxiety disorder, unspecified; M54.9 Dorsalgia, unspecified; G89.29 Other chronic pain; K21.9 Gastro-esophageal reflux disease without esophagitis; E78.00 Pure hypercholesterolemia, unspecified; I48.91 Unspecified atrial fibrillation; J44.1 Chronic obstructive pulmonary disease with (acute) exacerbation; Z79.01 Long term (current) use of anticoagulants; Z79.84 Long term (current) use of oral hypoglycemic drugs; Z68.43 Body mass index [BMI] 50.0-59.9, adult; Z99.81 Dependence on supplemental oxygen; Z88.8 Allergy status to other drugs, medicaments and biological substances; Z79.899 Other long term (current) drug therapy
CPT/HCPCS: 36415; 36600; 71045; 80048; 80053; 81001; 82803; 82948; 83036; 83605; 83880; 84145; 84484; 85008; 85018; 85025; 87040; 87077; 87186; 87811; 93308; 94640; 94660; 94760; 97110; 97116; 97161; 97530; 99285; A4615; A6258; G0378; J0696; J1815; J1940; J2405; J2930; J3490; J7030; J7040

== ENCOUNTER 2023-04-03 09:52 | Emergency (ER) | payer MEDICARE, MEDICAID ==
[~2023-04-03] VITALS: Ht 171.4 cm; Wt 127.3 kg
[~2023-04-03 09:52] MED LIST changes: +DILT180C76 PO; -DILT180C87 PO; +IPRA3AMP31 NEB; -IPRA3AMP9 NEB; -LEVO-65 PO; -PANT40SU2 PO
[2023-04-03 09:57] VITALS: BP 90/53
--- NOTE | 2023-04-03 10:42 | NUR ---
PUSHING FLUIDS TO OBTAIN UA
[2023-04-03 11:32] LABS: CLARITY,URINE CLEAR (Clear); COLOR,URINE YELLOW (Yellow); GLUCOSE, URINE NEGATIVE (Neg); KETONES,URINE NEGATIVE (Neg); LEUKOCYTE ESTERASE ,URINE NEGATIVE (Neg); NITRITES, URINE NEGATIVE (Neg); OCCULT BLOOD,URINE NEGATIVE (Neg); PH,URINE 5.5 (4.8-8.0); PROTEIN,URINE NEGATIVE (Neg); UROBILINOGEN,URINE 0.2 E.U/dL (0.2-1.0)
[2023-04-03 11:34] LABS: UA COLLECTION TYPE CLN CATCH MIDSTREAM
[2023-04-03] MEDS ORDERED: CEPH-585 PO (12:08)
[2023-04-03] MEDS ORDERED: cephalexin 250mg capsule PO ONE (12:10)
--- NOTE | 2023-04-03 12:55 | NUR ---
CALL TO PT FRIEND ABHILASH TO COME PICK HER UP, PER ABHILASH WILL BE ON HER WAY.
== END 2023-04-03 12:38 | disposition home or self-care (01) ==
LOC: ER 09:52
DX: R30.0 Dysuria (principal); R10.9 Unspecified abdominal pain; R35.0 Frequency of micturition; E78.00 Pure hypercholesterolemia, unspecified; I10 Essential (primary) hypertension; G89.29 Other chronic pain; M54.9 Dorsalgia, unspecified; F31.9 Bipolar disorder, unspecified; Z88.6 Allergy status to analgesic agent; Z79.899 Other long term (current) drug therapy; Z79.1 Long term (current) use of non-steroidal anti-inflammatories (NSAID); Z79.2 Long term (current) use of antibiotics
CPT/HCPCS: 81003; 99284

== ENCOUNTER 2024-03-25 11:35 | Emergency (ER) | payer BC, MEDICAID ==
[~2024-03-25] VITALS: Ht 172.7 cm; Wt 136.4 kg
[~2024-03-25 11:35] MED LIST changes: +CEPH-585 PO
[2024-03-25 11:46] VITALS: BP 137/77; PULSE 73; RESP 18; TEMP 97.7; O2SAT 98
[2024-03-25] MEDS ORDERED: METR-159 PO (15:04)
[2024-03-25] MEDS ORDERED: SULF1TAB49 PO (15:04)
[2024-03-25] MEDS ORDERED: CHLO118L3 TOP (15:05)
== END 2024-03-25 16:30 | disposition home or self-care (01) ==
LOC: ER 11:35
DX: L03.818 Cellulitis of other sites (principal); Z88.8 Allergy status to other drugs, medicaments and biological substances; Z79.2 Long term (current) use of antibiotics; Z79.899 Other long term (current) drug therapy; Z79.84 Long term (current) use of oral hypoglycemic drugs; E78.00 Pure hypercholesterolemia, unspecified; I10 Essential (primary) hypertension; K21.9 Gastro-esophageal reflux disease without esophagitis; G89.29 Other chronic pain; M54.9 Dorsalgia, unspecified; F41.9 Anxiety disorder, unspecified; F32.A Depression, unspecified
CPT/HCPCS: 99284